=== PATIENT | male | born 1950 | race Caucasian/White ===

== ENCOUNTER 2019-06-02 20:17 | Observation (INO) ==
[2019-06-02] MEDS ORDERED: ASPIRIN PO ONE (20:28)
--- NOTE | 2019-06-02 20:43 | EKG Report ---
Test Performed on : 06/02/2019 8:32:15 PM Test Reason : cp Blood Pressure : / mmHG Vent. Rate : 076 BPM Atrial Rate : 076 BPM P-R Int : 174 ms QRS Dur : 106 ms QT Int : 410 ms P-R-T Axes : 053 033 130 degrees QTc Int : 461 ms Sinus rhythm. with premature atrial complexes. with aberrant conduction. Possible Lateral infarct , age undetermined ST & T wave abnormality, consider inferior ischemia Abnormal ECG When compared with ECG of 23-AUG-2015 04:06, Significant changes have occurred Unconfirmed Result
--- NOTE | 2019-06-02 20:56 | Diag Imaging Result Doc PS360 ---
EXAM: CHEST-2 VIEWS 06/02/2019 HISTORY: cp TECHNIQUE: PA and lateral chest COMMENT: There is ill-defined opacity in the left lower lobe. The alveolar opacity which was present previously on 08/23/2015 and the right lower lobe is no longer present. There is an apparent granuloma present in the right middle lobe. IMPRESSION: Atelectasis versus pneumonia left lower lobe. Electronically signed by Tarun Taylor 06/02/2019 8:54 PM
[2019-06-02] MEDS ORDERED: MORPHINE IV ONE (21:13)
[2019-06-02 21:31] LABS: BASO# 0.02 X1000 (0.0-0.2); BASO% 0.2 % (0.0-0.8); EOS# 0.12 X1000 (0.0-0.7); HEMATOCRIT 32.7 % (42.0-52.0); HEMOGLOBIN 10.6 g/dL (14.0-18.0); IMM GRAN# 0.03 X1000 (0.0-0.04); IMM GRAN% 0.2 % (0.0-0.5); LYMPH# 2.43 X1000 (1.2-3.4); LYMPH% 19.7 % (20.5-51.1); MCH 28.3 PG (27-31); MCHC 32.4 g/dL (33-37); MCV 87.4 FL (81-99); MONO# 0.91 X1000 (0.11-0.59); MONO% 7.4 % (1.7-9.3); MPV 9.9 FL (7.4-10.4); NEUT# 8.85 X1000 (1.4-6.5); NEUT% 71.5 % (42.2-75.2); PLT 349 X1000 (130-400); RBC 3.74 XMIL (4.7-6.1); RDW 14.4 % (11.5-14.5); WBC 12.36 X1000 (4.8-10.8)
[2019-06-02 22:03] LABS: INR 1.18; PROTIME 15.2 Seconds (11.0-16.0)
[2019-06-02 22:04] LABS: PTT 28.4 Seconds (22.3-41.8)
[2019-06-02 22:36] LABS: AGAP 14; ALB/GLOB RATIO 1.1; ALBUMIN 4.3 g/dL (3.5-5.0); ALKALINE PHOSPHATASE 55 U/L (32-122); BUN 37 mg/dL (8-22); CALCIUM 9.5 mg/dL (8.8-10.2); CHLORIDE 94 mmol/L (98-107); CK PROFILE 149 U/L (24-204); COSMO 274; CREATININE 1.2 mg/dL (0.7-1.2); ESTIMATED GFR > 60; GLUCOSE 154 mg/dL (70-104); GOT 20 U/L (10-34); GPT 15 U/L (10-44); POTASSIUM 3.7 mmol/L (3.5-5.1); SODIUM 131 mmol/L (136-145); TCO2 23 mmol/L (25-35); TOTAL BILIRUBIN < 0.15 mg/dL (0.20-1.00); TOTAL PROTEIN 8.1 g/dL (6.3-8.3)
[2019-06-02] MEDS ORDERED: LEVAQUIN 750 MG/D5W 750 MG/150 ML IVPB IV ONE (22:57)
--- NOTE | 2019-06-02 23:02 | PROVIDER DOCUMENTATION ---
This chart was entered by Norma Alfaro Scribe, acting as scribe for Jonathan Lai MD. HPI-Chest Pain - General Chief Complaint: Chest Pain Stated Complaint: CHEST PAIN/SOB/WHEEZING Time Seen by Provider: 06/02/19 21:02 Source: patient Allergies/Adverse Reactions: Patient Allergies Allergy/AdvReac Type Severity Reaction Status Date / Time bacitracin Allergy RASH Verified 06/02/19 21:30 [From Neosporin ([id number])] bacitracin zinc * Allergy RASH Verified 06/02/19 21:30 [From Neosporin ([id number])] clarithromycin [From Biaxin] Allergy RASH Verified 06/02/19 21:30 etodolac [From Lodine] Allergy RASH Verified 06/02/19 21:30 neomycin sulfate * Allergy RASH Verified 06/02/19 21:30 [From Neosporin ([id number])] polymyxin B Allergy RASH Verified 06/02/19 21:30 [From Neosporin ([id number])] Home Medications: Home Medication List Medication Instructions Recorded Confirmed Last Taken Type Carvedilol 25 mg PO BID 04/09/16 06/02/19 04/09/16 History PRAVAstatin [Pravachol] 80 mg PO DAILY 04/09/16 06/02/19 04/09/16 History Aspirin [Adult Low Dose Aspirin EC] 2 tab PO DAILY 06/02/19 06/02/19 Unknown History Nifedipine [Nifedipine ER] 90 mg PO DAILY 06/02/19 06/02/19 Unknown History Telmisartan/Hydrochlorothiazid 1 tab PO DAILY 06/02/19 06/02/19 Unknown History [Telmisartan-Hctz 80-25 mg Tab] - History of Present Illness-CP Nature of Presenting Problem: Pt is a 68 yom who presents to the ED with a CC of chest pain. Pt states the pain began at 8:00pm while at [employer]. Pt reports previous episode a month ago. Pt reports a hx of heart blockages. Pt reports SOB. Pt denies nausea, vomiting, and fever. Pt reports having a stress test a year ago. Pt reports taking 325 mg of aspirin to relieve symptoms. Location: reports: other (left) Chest Pain Radiation: reports: no radiation Quality of Pain: reports: stabbing Severity in ED: mild Onset/Duration: 1 hour ago Timing: still present Context/Activities at Onset: reports: none Modifying Factors: improves with: nothing Associated Symptoms: reports: shortness of breath Nitro Today/Relief: no nitro taken today Aspirin Treatment Today: no aspirin today Prior Chest Pain/Cardiac Workup: reports: echocardiography, stress test Similar Symptoms Previously?: Yes Recently Seen Here or By Another Healthcare Provider: Yes Review of Systems - Adult - REVIEW OF SYSTEMS - ADULT Constitutional: reports: see HPI Eyes: reports: no symptoms reported Ears, Nose, Mouth & Throat: reports: no symptoms reported Cardiovascular: reports: see HPI, chest pain Respiratory: reports: see HPI, shortness of breath Gastrointestinal: reports: no symptoms reported Genitourinary: reports: no symptoms reported Musculoskeletal: reports: no symptoms reported Integumentary: reports: no symptoms reported Neurological: reports: no symptoms reported Psychiatric: reports: no symptoms reported Endocrine: reports: no symptoms reported Hematologic/Lymphatic: reports: no symptoms reported Allergic/Immunologic: reports: no symptoms reported All Other Systems: Reviewed and Negative Past History - Adult - PAST MEDICAL HISTORY-ADULT Review of Records: reports: Old Records Reviewed, Nursing Assessment Review, Medications Reviewed, Social history reviewed & non-contributory. Major Childhood Illnesses: reports: denies history Cardiovascular: reports: HTN, other (stent ) Respiratory: reports: denies history Gastrointestinal: reports: denies history Obstetrical/Gynecological: reports: denies history Genitourinary: reports: denies history Musculoskeletal: reports: denies history Neurological: reports: denies history Endocrine/Immune: reports: denies history Other Conditions: reports: denies history - PRIOR SURGERIES/PROCEDURES Surgical/Procedure History: reports: appendectomy, cholecystectomy - IMMUNIZATION STATUS Childhood Immunizations: See Nurse Assessment Flu Vaccine: See Nurse Assessment - FAMILY HISTORY Family History: reviewed, not pertinent - SOCIAL HISTORY Smoking: quit greater than 1 year Provider spent 3-5 mins advising pt. on dangers of tobacco.: Discussed manners to quit use, and f/u contacts for add'l counseling. Substance Use: denies Living Situation: family Physical Exam-General - PHYSICAL EXAM-ADULT Initial Vital Signs Reviewed: Yes - CONSTITUTIONAL General Appearance: alert, no apparent distress - EYES Eyes: PERRL/EOMI, pink conjunctivae - HEAD, EARS, NOSE, MOUTH & THROAT HENMT: normocephalic/atraumatic, moist mucous membranes - NECK Neck: non-tender, full range of motion, supple, normal inspection - RESPIRATORY Respiratory: chest non-tender, lungs clear, normal breath sounds. negative: crackles, rhonchi - CARDIOVASCULAR Cardiovascular: normal peripheral pulses, regular rate, rhythm. negative: bradycardia, tachycardia - GASTROINTESTINAL (ABDOMEN) Abdominal Exam: normal bowel sounds, non tender, soft. negative: guarding, rebound - MUSCULOSKELETAL Back Exam: normal inspection, no CVA tenderness, no vertebral tenderness Extremity: normal range of motion, non-tender, normal inspection - SKIN Integumentary: normal color, normal turgor, warm/dry. negative: ecchymosis, erythema - NEUROLOGIC Neurologic: grossly normal - PSYCHIATRIC Psych/Mental Status: normal mood/affect, normal thought content, normal thought process, oriented x 3 Progress - PLAN OF CARE/RESULTS Progress/Plan/Lab Results: Vital Signs - 8 hr 06/02/19 20:41 Temperature 98.2 F Pulse Rate 73 Respiratory Rate 18 Blood Pressure 169/65 O2 Sat by Pulse Oximetry 94 L Laboratory Results - last 24 hr 06/02/19 06/02/19 06/02/19 21:19 21:19 21:19 WBC 12.36 H RBC 3.74 L Hgb 10.6 L Hct 32.7 L MCV 87.4 MCH 28.3 MCHC 32.4 L RDW Std Deviation 14.4 Plt Count 349 MPV 9.9 Immature Gran % (Auto) 0.2 Neut % (Auto) 71.5 Lymph % (Auto) 19.7 L Morehouse % (Auto) 7.4 Eos % (Auto) 1.0 Baso % (Auto) 0.2 Immature Gran # (Auto) 0.03 Neut # (Auto) 8.85 H Lymph # (Auto) 2.43 Morehouse # (Auto) 0.91 H Eos # (Auto) 0.12 Baso # (Auto) 0.02 PT INR PTT (Actin FS) Sodium 131 L Potassium 3.7 Chloride 94 L Carbon Dioxide 23 L Anion Gap 14 BUN 37 H Creatinine 1.2 Estimated GFR/1.73 m2 > 60 BUN/Creatinine Ratio 31 Glucose 154 H Calculated Osmolality 274 Calcium 9.5 Total Bilirubin < 0.15 L AST 20 ALT 15 Alkaline Phosphatase 55 Creatine Kinase 149 Troponin T Ado-X-Cjdnnawydti Pept 1061 H Total Protein 8.1 Albumin 4.3 Globulin 3.8 Albumin/Globulin Ratio 1.1 06/02/19 06/02/19 21:19 21:19 WBC RBC Hgb Hct MCV MCH MCHC RDW Std Deviation Plt Count MPV Immature Gran % (Auto) Neut % (Auto) Lymph % (Auto) Morehouse % (Auto) Eos % (Auto) Baso % (Auto) Immature Gran # (Auto) Neut # (Auto) Lymph # (Auto) Morehouse # (Auto) Eos # (Auto) Baso # (Auto) PT 15.2 INR 1.18 PTT (Actin FS) 28.4 Sodium Potassium Chloride Carbon Dioxide Anion Gap BUN Creatinine Estimated GFR/1.73 m2 BUN/Creatinine Ratio Glucose Calculated Osmolality Calcium Total Bilirubin AST ALT Alkaline Phosphatase Creatine Kinase Troponin T 0.011 Jhj-I-Saidejublsg Pept Total Protein Albumin Globulin Albumin/Globulin Ratio Orders Category Date Time Status Cardiac Monitoring DIRECTED Care 06/02/19 20:29 Active Oxygen Therapy- ED Nursing DIRECTED Care 06/02/19 20:29 Active Saline Loc NOW Care 06/02/19 20:29 Active CHEST-2 VIEWS [RAD] Stat Exams 06/02/19 20:29 Completed BLOOD CULTURE [BLDCUL] Stat Lab 06/02/19 22:58 Ordered CBC WITH ELECTRONIC DIFF [HEME] Stat Lab 06/02/19 21:19 Completed CK PROFILE [SP CHEM] Stat Lab 06/02/19 21:19 Completed COMPREHENSIVE METABOLIC PANEL [CHEM] Stat Lab 06/02/19 21:19 Completed PRO B-NATRIURETIC PEPTIDE Stat Lab 06/02/19 21:19 Completed PROTIME WITH INR [COAG] Stat Lab 06/02/19 21:19 Completed PTT [COAG] Stat Lab 06/02/19 21:19 Completed TROPONIN T Stat Lab 06/02/19 21:19 Completed Aspirin Med 06/02/19 20:28 Discontinued 325 mg PO NOW ONE Levaquin 750 mg/D5w IV Now Med 06/02/19 22:57 Ordered Levofloxacin 750 mg/D5w [Levaquin 750 mg/D5w] 750 mg in 150 ml IV NOW Morphine Med 06/02/19 21:13 Discontinued 4 mg IV NOW ONE CP/SOB/Palp >45 yrs of Age Stat Oth 06/02/19 20:28 Ordered EKG [EKG] Stat Ther 06/02/19 20:29 Draft ACS vs PNA, will cover with abx, will admit for ACS workup, spoke with Dr. Dietz and he will admit the patient Result Diagrams: 06/02/19 21:19 06/02/19 21:19 - EKG 1 Time of EKG reading by physician:: 20:35 EKG Read and Signed by:: Jonathan Lai EKG Interpretation (*Must complete 3 of following elements*): Abnormal (rate 76 Sinus rhythm with premature atrial complexes with aberrant conduction Possible Lateral infarct, age undetermined ST & T wave abnormality, consider inferior isechmia) - XRAY 1 XRAY: Bilateral XRAY Study: Chest Impression: Abnormal (EXAM: CHEST-2 VIEWS 06/02/2019 HISTORY: cp TECHNIQUE: PA and lateral chest COMMENT: There is ill-defined opacity in the left lower lobe. The alveolar opacity which was present previously on 08/23/2015 and the right lower lobe is no longer present. There is an apparent granuloma present in the right middle lobe. IMPRESSION: Atelectasis versus pneumonia left lower lobe. Electronically signed by Tarun Taylor 06/02/2019 8:54 PM 06/02/192053 Interpreting Physician: Tarun Taylor MD Dictated Date/Time: 06/02/192052 cc: Jonathan Lai MD; Lexa Chin MD) Departure - Departure Date of Disposition Decision: 06/02/19 Time of Disposition Decision: 23:00 DIAGNOSIS: Pneumonia Qualifiers: Pneumonia type: due to unspecified organism Laterality: left Lung location: lower lobe of lung Qualified Code(s): J18.1 - Lobar pneumonia, unspecified organism Chest pain Qualifiers: Chest pain type: other chest pain Qualified Code(s): R07.89 - Other chest pain; R07.8 - Other chest pain Disposition: ADMITTED INPATIENT 09 Certified Medical Emergency: Emergent Condition: Stable Referrals and Follow-Ups: Lexa Chin MD [Primary Care Provider] - - Critical Care Note This patient required my direct & personal management of CC.: No Attestation - Physician/ FRANSISCO Attestation Patient care was provided by Advanced Practice Provider:: No The physician spent face to face time with patient:: Yes Advanced Practice Provider documentation review:: Supervising physician onsite and consulted in the evaluation and care of this patient. The physician did have a face to face encounter with the patient. This chart was documented by the indicated scribe, (Norma Alfaro Scribe) and accurately reflects the services I performed and decisions made by me, Jonathan Lai MD, as attested by the provider's signature.
[2019-06-02] MEDS ORDERED: NS 1,000 ML IV ONE (23:03)
[2019-06-03] MEDS ORDERED: TYLENOL PO PRN (02:22)
[2019-06-03] MEDS: LOVENOX SUBQ SCH (02:38)
[2019-06-03] MEDS: DUONEB (A & A) INH SCH ×4 (03:51→23:16)
[2019-06-03 07:25] LABS: BASO# 0.04 X1000 (0.0-0.2); BASO% 0.4 % (0.0-0.8); EOS# 0.19 X1000 (0.0-0.7); EOS% 1.7 % (0.0-10.0); HEMATOCRIT 34.5 % (42.0-52.0); IMM GRAN# 0.03 X1000 (0.0-0.04); IMM GRAN% 0.3 % (0.0-0.5); LYMPH% 21.9 % (20.5-51.1); MCH 28.1 PG (27-31); MCHC 31.9 g/dL (33-37); MCV 88.2 FL (81-99); MONO# 0.68 X1000 (0.11-0.59); MPV 9.8 FL (7.4-10.4); NEUT# 7.95 X1000 (1.4-6.5); NEUT% 69.7 % (42.2-75.2); PLT 324 X1000 (130-400); RBC 3.91 XMIL (4.7-6.1); RDW 14.3 % (11.5-14.5); WBC 11.39 X1000 (4.8-10.8)
[2019-06-03 07:53] LABS: AGAP 13; BUN 29 mg/dL (8-22); CALCIUM 9.3 mg/dL (8.8-10.2); CHLORIDE 100 mmol/L (98-107); COSMO 280; ESTIMATED GFR > 60; GLUCOSE 96 mg/dL (70-104); POTASSIUM 4.3 mmol/L (3.5-5.1); SODIUM 137 mmol/L (136-145); TCO2 24 mmol/L (25-35)
[2019-06-03] MEDS: COREG PO SCH ×2 (10:36→20:58)
[2019-06-03] MEDS: PRAVACHOL PO SCH (10:36)
[2019-06-03] MEDS: ASPIRIN EC PO SCH (10:37)
[2019-06-03] MEDS: ADALAT CC PO SCH (10:37)
[2019-06-03] MEDS: HYDROCHLOROTHIAZIDE PO SCH (10:37)
--- NOTE | 2019-06-03 10:37 | HISTORY AND PHYSICAL ---
CHIEF COMPLAINT: Chest pain, shortness of breath and wheezing. HISTORY OF PRESENT ILLNESS: Mr. Quinn is a 68-year-old male who presented to the emergency room with complaints of chest pain, shortness of breath and wheezing he stated started around 8 p.m. while he was at [employer]. Had a previous episode around a month ago. He denied any nausea, vomiting or fever. States that he had a stress test around a year ago. Does have a history of hypertension, hyperlipidemia, coronary artery disease status post stenting and a history of skin cancer. He reported that is was left-sided chest pain with no radiation. He felt that it was a stabbing pain. Chest x-ray was obtained in the emergency room which showed a left lower lobe pneumonia. His cardiac enzymes were negative. He will be admitted to the medical floor for treatment of pneumonia and trending cardiac enzymes. PAST MEDICAL HISTORY: See HPI. PAST SURGICAL HISTORY: 1. Appendectomy. 2. Cholecystectomy. 3. Cardiac stenting. SOCIAL HISTORY: No alcohol, tobacco or illicit drugs. He quit smoking in 1985. FAMILY HISTORY: Positive for coronary artery disease. ALLERGIES: Biaxin, Neosporin, Lodine, bacitracin, etodolac, all causing a rash. HOME MEDICATIONS: 1. Aspirin 81 mg two p.o. daily. 2. Carvedilol 25 mg p.o. b.i.d. 3. Nifedipine 90 mg p.o. daily. 4. Pravastatin 80 mg p.o. daily. 5. Telmisartan/hydrochlorothiazide 80/25 one p.o. daily. REVIEW OF SYSTEMS: Fourteen point review of systems conducted with the patient and pertinent positives listed above in the HPI. All other systems reviewed and found to be negative. PHYSICAL EXAMINATION: VITAL SIGNS: Temperature 97.7 degrees, pulse 74, respirations 18, blood pressure 175/67, oxygen saturation 95% on room air. GENERAL: 68-year-old male lying in the ER stretcher in no acute distress. He is alert and oriented x3. HEENT: Head is atraumatic, normocephalic. Pupils equal, round and reactive to light. Extraocular eye movements intact. Sclerae anicteric. Conjunctivae mildly pale. Oral mucosa is mildly dry. NECK: Supple. No JVD. No thyromegaly. Trachea is midline. No cervical lymphadenopathy. CARDIAC: S1, S2 appreciated. No murmurs, gallops, rubs. LUNGS: Decreased. Crepitations noted throughout bilateral lung bases. No wheezing. No rhonchi. Symmetric rise and fall of respirations. ABDOMEN: Soft, nondistended, nontender. Bowel sounds present in all 4 quadrants. Normoactive. No pulsatile mass. No organomegaly. EXTREMITIES: No cyanosis, clubbing or edema. 2+ pedal pulses. NEUROLOGICAL: Alert and oriented x3. No focal motor deficits. Otherwise nonfocal examination. DIAGNOSTIC DATA: Chest x-ray shows left lower lobe pneumonia. LABORATORY DATA: WBC 12.36, hemoglobin 10.6, hematocrit 32.7, platelet count 349,000. Coags within normal limits. Sodium 131, potassium 3.7, chloride 94, carbon dioxide 23, BUN 37, creatinine 1.2, glucose 154. CK and troponin are within normal limits. ASSESSMENT AND PLAN: 1. Community-acquired pneumonia. 2. Leukocytosis secondary to #1. 3. Anemia of chronic disease. 4. Hypertension. 5. Coronary artery disease. 6. Hyperlipidemia. PLAN: Admit patient to the medical floor. We will treat with Levaquin, trend cardiac enzymes, continue home antihypertensives. Gentle fluid hydration. Continue patient's pravastatin. Blood cultures are pending. We will order a sputum culture. Further recommendations per patient's clinical course. Dictated by BRONSON Grey for Jeferson Patrick MD cc: BRONSON Grey MD Patient presenting with chest pain, shortness of breath, wheezing. CXR positive for left lower lobe infiltrate. I agree with the assessment and plan of the BRONSON. Dr. Patrick. [facility]
[2019-06-03] MEDS: MICARDIS PO SCH (10:38)
--- NOTE | 2019-06-03 10:59 | PROGRESS NOTE ---
DATE: 06/03/2019 SUBJECTIVE: Mr. Quinn is breathing comfortably. He feels a little better. He reported that he just felt bad. He did not know he had pneumonia. OBJECTIVE: Vital Signs: He remains afebrile, temperature 97.9 degrees, pulse 73, respirations 18, blood pressure 156/55. HEENT: His pupils are equal. CVP less than 6 cm from right atrium. Lungs: Clear anterior and posterior. Cardiovascular: Regular rhythm and rate without murmur or S3. Abdomen: Soft. Skin: Warm and dry. Extremities: No pedal edema. IMAGING AND LABORATORY DATA: White count 11,390, hematocrit is 34, platelet count 324,000. Sodium 137, potassium 4.3, chloride 100, BUN 29, creatinine 1.0. ProBNP was 1000. Troponin was less than 0.01. His chest x-ray showed atelectasis versus pneumonia, left lower lobe. ASSESSMENT AND PLAN: Treat him for pneumonia. He has general malaise and feeling bad. He is getting Levaquin 750 mg intravenously daily and getting some albuterol, DuoNebs. He reports that he feels better. Will repeat another chest x-ray in the morning. His lab is unremarkable. Possible elevation of his white blood cell count. Electrolytes this morning show sodium 137, potassium 4.3, chloride 100, BUN 29, creatinine 1.2. His troponin has been less than 0.01. cc: Sid Piña MD
[2019-06-04] MEDS: DUONEB (A & A) INH SCH ×4 (05:17→22:50)
[2019-06-04] MEDS: LOVENOX SUBQ SCH (05:23)
--- NOTE | 2019-06-04 08:19 | Diag Imaging Result Doc PS360 ---
EXAM: CHEST-2 VIEWS HISTORY: 0600 TECHNIQUE: Two views COMPARISON: 06/02/2019 FINDINGS: I am unsure what the history means. The lungs are well expanded. The heart is not enlarged. The vessels are not distended. There are no infiltrates. No pleural effusions. Right granuloma. IMPRESSION: No acute abnormality. Electronically signed by Dallas Edward 06/04/2019 8:17 AM
[2019-06-04] MEDS: COREG PO SCH ×2 (09:18→21:48)
[2019-06-04] MEDS: HYDROCHLOROTHIAZIDE PO SCH (09:18)
[2019-06-04] MEDS: PRAVACHOL PO SCH (09:18)
[2019-06-04] MEDS: ADALAT CC PO SCH (09:19)
[2019-06-04] MEDS: ASPIRIN EC PO SCH (09:19)
[2019-06-04] MEDS: MICARDIS PO SCH (09:19)
--- NOTE | 2019-06-04 15:19 | PROGRESS NOTE ---
DATE: 06/04/2019 SUBJECTIVE: Today Mr. Quinn refers to be doing a little better. He did not have any more chest pain. He just had a lot of concerns about his care. He believes that he probably did not get a Levaquin dose that he was due last night. 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 OBJECTIVE: Current vitals: Blood pressure is 187/73, pulse of 70, respiration is 20, temperature is 98.3 degrees. General exam: Mr. Quinn is a 68-year-old gentleman. He is in bed in no distress. HEENT: Mucosa is pink and moist. Anicteric. Acyanotic. Neck: Supple. Chest: Clear to auscultation. No crepitations. Cardiovascular: Regular rate and rhythm. Abdomen: Soft. Extremities: No pedal edema. MEDIA AID: Patient was awake, alert and oriented. There was no focal neurological deficit. LABORATORY DATA: Has been reviewed from yesterday; there was none for today. Patient's troponins have also been trended 4 times, and they have all been negative. X-RAY DATA: A chest x-ray which was done on admission did show an infiltrate in the left lower lobe. ASSESSMENT: 1. Left lower pleuritic chest pain, presumably from atelectasis versus pneumonia. A follow-up chest x-ray shows some improvement; however, the patient continues to be symptomatic. We are going to get a CAT scan of the lungs for better visualization of the lung anatomy. The patient continues to be on Levaquin. 2. History of coronary artery disease. So far, troponins have been trended 4 times, unremarkable, and electrocardiograms have also been unremarkable. 3. Uncontrolled hypertension. Patient had been started back on his home medications. 4. Dyslipidemia. Will continue with pravastatin. cc: Isaiah Carrasquillo MD
--- NOTE | 2019-06-04 16:12 | Diag Imaging Result Doc PS360 ---
EXAM: CT THORAX W/CONTRAST HISTORY: pneumonia TECHNIQUE: CT chest with intravenous contrast COMPARISON: 08/21/2015 FINDINGS: No pleural effusions. Prominent atherosclerosis. Mildly prominent heart. No aortic aneurysm or dissection. There calcified mediastinal and right hilar nodes with scattered granuloma. Scarring in the right base. No infiltrates. IMPRESSION: No pneumonia This exam was performed using automated exposure control, adjustment of mA or kV according to patient size, and/or use of iterative reconstruction technique. Electronically signed by Dallas Edward 06/04/2019 4:10 PM
[2019-06-04] MEDS: LEVAQUIN 750 MG/D5W 750 MG/150 ML IVPB IV SCH ×2 (21:48→22:11)
[2019-06-05] MEDS: DUONEB (A & A) INH SCH ×2 (05:27→10:31)
[2019-06-05] MEDS: LOVENOX SUBQ SCH (06:46)
[2019-06-05 08:30] VITALS: BP 133/54
[2019-06-05] MEDS: PRAVACHOL PO SCH (10:19)
[2019-06-05] MEDS: ASPIRIN EC PO SCH (10:19)
[2019-06-05] MEDS: ADALAT CC PO SCH (10:19)
[2019-06-05] MEDS: MICARDIS PO SCH (10:20)
[2019-06-05] MEDS: HYDROCHLOROTHIAZIDE PO SCH (10:20)
[2019-06-05] MEDS: COREG PO SCH (10:20)
--- NOTE | 2019-06-05 15:02 | DISCHARGE SUMMARY ---
ADMISSION DATE: 06/03/2019 DISCHARGE DATE: 06/05/2019 DISPOSITION: Home. FOLLOWUP: Dr. Lexa Chin. CONSULTATIONS DURING THIS ADMISSION: None. IMAGING STUDIES OF SIGNIFICANCE: 1. Chest x-ray did show atelectasis versus pneumonia in the left lower lobe. 2. A repeat chest x-ray showed no acute pathology. 3. A CTA of the lungs showed no pneumonia. ADMISSION DIAGNOSES: 1. Community-acquired pneumonia. 2. Leukocytosis. 3. Anemia of chronic disease. 4. Hypertension. 5. Coronary artery disease. DIAGNOSES AT THE TIME OF DISCHARGE: 1. Left lower pleuritic chest pain, presumably from atelectasis. 2. Bronchitis. 3. History of coronary artery disease, currently asymptomatic. The patient's troponin trended 4 times negative. EKGs showed no ST or T-wave abnormality. 4. Uncontrolled hypertension, improved during the hospital course. Patient has been started back on his medications. 5. Dyslipidemia, stable. DISCHARGE MEDICATIONS: Pravastatin 80 mg p.o. daily. Carvedilol 25 mg b.i.d. Aspirin 81 mg daily. Nifedipine 90 mg p.o. daily. Telmisartan with hydrochlorothiazide. Levaquin 500 p.o. daily. Tylenol 650 p.o. every 6 hours. PRESENTING COMPLAINT: Chest pain and shortness of breath. HISTORY OF PRESENTING COMPLAINT: Mr. Quinn is a 68-year-old gentleman who came to the emergency department because of chest discomfort, mostly to the left side. Imaging studies initially did show a left lower lobe pneumonia versus atelectasis. According to Mr. Quinn he did have some chills and fevers at home. He was admitted for suspected left lower lobe pneumonia. HOSPITAL COURSE: Mr. Quinn was admitted to the medical floor, pain was managed and he was started on broad-spectrum IV antibiotics. A repeat chest x-ray was unremarkable Mr. Quinn was concerned about his environmental exposures and the possibility of him developing a lung cancer. I did tell him that his probability is less, not withstanding he requested a CT scan of the chest which was done. It definitely came back negative and there were no masses nor even pneumonia. I think Mr. Quinn did have some bronchitis associated with left lower lobe atelectasis causing his pleuritic chest pain. During the hospital course, the pain completely resolved. His cough and sputum production also completely resolved. No more wheezing. His current vitals blood pressure is 133/54, pulse of 83, respirations 16, temperature 98.2 degrees. Mr. Quinn is tolerating his current oral regimen and is asymptomatic. He feels well. His feels he is back to his baseline. We think he is stable enough to be discharged. All the discharge instructions discussed with him and he voiced understanding. Time spent for discharge is 35 minutes. cc: MD Lexa Lorenzana MD MTDD
== END 2019-06-05 10:43 | disposition home or self-care (01) ==
LOC: ED 20:17 → INTOOBSV 06-03 01:02 → SUATTDRO 06-03 01:02 → 3N 06-03 01:02
PROVIDERS: ATTEND Internal Medicine

== ENCOUNTER 2019-06-26 16:57 | Inpatient (IN) ==
[2019-06-26] MEDS ORDERED: ZOFRAN IV ONE (17:20)
[2019-06-26] MEDS ORDERED: NS 1,000 ML IV ONE ×2 (17:20→19:27)
[2019-06-26] MEDS ORDERED: IMODIUM PO ONE (17:20)
--- NOTE | 2019-06-26 17:25 | PROVIDER DOCUMENTATION ---
HPI-General Adult - General Chief Complaint: Flu Symptoms Stated Complaint: FLU Time Seen by Provider: 06/26/19 17:11 Source: patient, family Allergies/Adverse Reactions: Patient Allergies Allergy/AdvReac Type Severity Reaction Status Date / Time bacitracin Allergy RASH Verified 06/26/19 17:17 [From Neosporin ([id number])] bacitracin zinc * Allergy RASH Verified 06/26/19 17:17 [From Neosporin ([id number])] clarithromycin [From Biaxin] Allergy RASH Verified 06/26/19 17:17 etodolac [From Lodine] Allergy RASH Verified 06/26/19 17:17 neomycin sulfate * Allergy RASH Verified 06/26/19 17:17 [From Neosporin ([id number])] polymyxin B Allergy RASH Verified 06/26/19 17:17 [From Neosporin ([id number])] Latex, Natural Rubber AdvReac RASH Verified 06/26/19 17:18 Home Medications: Home Medication List Medication Instructions Recorded Confirmed Last Taken Type Carvedilol 25 mg PO BID 04/09/16 06/26/19 06/26/19 History PRAVAstatin [Pravachol] 80 mg PO QHS 04/09/16 06/26/19 1 Day Ago History ~06/25/19 Aspirin [Adult Low Dose Aspirin EC] 2 tab PO DAILY 06/02/19 06/26/19 06/26/19 History Nifedipine [Nifedipine ER] 90 mg PO DAILY 06/02/19 06/26/19 06/26/19 History Telmisartan/Hydrochlorothiazid 1 tab PO DAILY 06/02/19 06/26/19 06/26/19 History [Telmisartan-Hctz 80-25 mg Tab] Acetaminophen [Tylenol] 650 mg PO Q4H PRN PRN #30 tab 06/05/19 06/26/19 06/26/19 Rx Codeine Phosphate/Guaifenesin 5 ml PO Q4H PRN 06/26/19 06/26/19 06/26/19 History [Virtussin AC Liquid] Nitroglycerin [Nitrostat] 0.4 mg SUBLINGUAL PRN PRN 06/26/19 06/26/19 3 Days Ago History ~06/23/19 - History of Present Illness -Gen Adult Nature of Presenting Problems: Patient is here in the ED with his with c/o lethargy, N/V/D of 4 days duration and decreased oral intake. He was treated for pneumonia around and also recently completed tamiflu for influenza A prior to onset of sxs. Admits to cough , occasional running nose with no other sxs Location of Pain/Injury: reports: none Pain Radiation: reports: no radiation Quality of Pain: reports: none Onset/Duration: reports: 4 days ago (see history) Timing: reports: still present Context/Activities at Onset: reports: none Modifying Factors: improves with: nothing Associated Symptoms: reports: denies symptoms Similar Symptoms Previously?: No Recently seen or treated by another doctor?: No Review of Systems - Adult - REVIEW OF SYSTEMS - ADULT Constitutional: reports: fever, fatique Eyes: reports: no symptoms reported Ears, Nose, Mouth & Throat: reports: no symptoms reported Cardiovascular: reports: no symptoms reported Respiratory: reports: see HPI Gastrointestinal: reports: see HPI Genitourinary: reports: no symptoms reported Musculoskeletal: reports: no symptoms reported Integumentary: reports: no symptoms reported Neurological: reports: no symptoms reported Psychiatric: reports: no symptoms reported Endocrine: reports: no symptoms reported Hematologic/Lymphatic: reports: no symptoms reported Allergic/Immunologic: reports: no symptoms reported Past History - Adult - PAST MEDICAL HISTORY-ADULT Review of Records: reports: Nursing Assessment Review, Medications Reviewed, Social history reviewed & non-contributory. Major Childhood Illnesses: reports: denies history Cardiovascular: reports: HTN, other (stent ) Respiratory: reports: denies history Gastrointestinal: reports: denies history Obstetrical/Gynecological: reports: denies history Genitourinary: reports: denies history Musculoskeletal: reports: denies history Neurological: reports: denies history Endocrine/Immune: reports: denies history Other Conditions: reports: denies history - PRIOR SURGERIES/PROCEDURES Surgical/Procedure History: reports: appendectomy, cholecystectomy - IMMUNIZATION STATUS Childhood Immunizations: See Nurse Assessment Flu Vaccine: See Nurse Assessment - FAMILY HISTORY Family History: reviewed, not pertinent - SOCIAL HISTORY Smoking: denies Substance Use: none/never Alcohol Use Frequency: never Living Situation: family Physical Exam-General - PHYSICAL EXAM-ADULT Initial Vital Signs Reviewed: Yes - CONSTITUTIONAL General Appearance: lethargic - EYES Eyes: PERRL/EOMI - HEAD, EARS, NOSE, MOUTH & THROAT HENMT: normocephalic/atraumatic - NECK Neck: non-tender, full range of motion, supple - RESPIRATORY Respiratory: chest non-tender, normal breath sounds, no pleuratic chest pain, no respiratory distress, no accessory muscle use - CARDIOVASCULAR Cardiovascular: regular rate, rhythm, JVD - GASTROINTESTINAL (ABDOMEN) Abdominal Exam: non tender, soft - MUSCULOSKELETAL Back Exam: normal inspection, no CVA tenderness Extremity: non-tender, no pedal edema - SKIN Integumentary: normal color - NEUROLOGIC Neurologic: care specialist II-XII nml as tested - PSYCHIATRIC Psych/Mental Status: oriented x 3 Progress - PLAN OF CARE/RESULTS Progress/Plan/Lab Results: Vital Signs - 8 hr 06/26/19 17:01 Temperature 97.8 F Pulse Rate 83 Respiratory Rate 20 Blood Pressure 99/47 O2 Sat by Pulse Oximetry 94 L Orders Category Date Time Status Cardiac Monitoring DIRECTED Care 06/26/19 17:18 Active IV Insertion ORDERED Care 06/26/19 17:18 Active Notify MD of + Sepsis Screen NOW Care 06/26/19 17:18 Active Notify Physician As Ordered Care 06/26/19 17:18 Active CHEST-1 VIEW [RAD] Stat Exams 06/26/19 17:18 Ordered BLOOD CULTURE [BLDCUL] Stat Lab 06/26/19 17:20 Ordered CBC WITH DIFF [HEME] Stat Lab 06/26/19 17:20 Ordered CK PROFILE [SP CHEM] Stat Lab 06/26/19 17:20 Ordered COMPREHENSIVE METABOLIC PANEL [CHEM] Stat Lab 06/26/19 17:20 Ordered INFLUENZA SCREEN A/B Stat Lab 06/26/19 17:22 Uncollected LACTATE, PLASMA [CHEM] Lab 06/26/19 17:30 Uncollected LACTATE, PLASMA [CHEM] Lab 06/26/19 20:30 Uncollected LACTATE, PLASMA [CHEM] Lab 06/26/19 23:30 Uncollected MAGNESIUM [CHEM] Stat Lab 06/26/19 17:20 Ordered PROTIME WITH INR [COAG] Stat Lab 06/26/19 17:20 Ordered PTT [COAG] Stat Lab 06/26/19 17:20 Ordered TROPONIN T Stat Lab 06/26/19 17:20 Ordered URINALYSIS W/POSS RFLX CULT [URINALYSIS] Stat Lab 06/26/19 17:20 Ordered 0.9% Sodium Chloride Inj [Ns] 1,000 ml Med 06/26/19 17:20 Active IV 999 mls/hr Loperamide [Imodium] Med 06/26/19 17:20 Discontinued 4 mg PO NOW ONE Ondansetron [Zofran] Med 06/26/19 17:20 Discontinued 8 mg IV NOW ONE Oxygen Device Stat Oth 06/26/19 17:18 Active Result Diagrams: 06/26/19 17:20 06/26/19 17:20 - REASSESSMENT Reassessment #1 Time Reassessed: 18:55 Status: improving (improved after IVF, now more allert. Discussed labs and positive xray result with him. He is okay with admission) - XRAY 1 XRAY Study: Chest ( EXAM: CHEST-1 VIEW HISTORY: RO PNEUMONIA TECHNIQUE: Single view COMPARISON: 06/04/2019 FINDINGS: The lungs are well expanded. The heart is mildly prominent. The vessels are not distended. There are left lower lobe infiltrates. No effusion identified. Right-sided granuloma IMPRESSION: Left lower lobe pneumonia Electronically signed by Dallas Edward 06/26/2019 5:34 PM) - CONSULTS/PCP/HOSPITALIST Notification #1 *Consult/PCP/Hospitalist*: Dr Leon Time Discussed: 17:20 Consult Disposition: Admit (accepts admission) Departure - Departure Date of Disposition Decision: 06/26/19 Time of Disposition Decision: 19:22 DIAGNOSIS: Influenza A Pneumonia Qualifiers: Pneumonia type: due to unspecified organism Laterality: left Lung location: lower lobe of lung Qualified Code(s): J18.1 - Lobar pneumonia, unspecified organism Nausea & vomiting Qualifiers: Vomiting type: unspecified Vomiting Intractability: non-intractable Qualified Code(s): R11.2 - Nausea with vomiting, unspecified Diarrhea Qualifiers: Diarrhea type: unspecified type Qualified Code(s): R19.7 - Diarrhea, unspecified Disposition: ADMITTED INPATIENT 09 Certified Medical Emergency: Emergent Condition: Fair Referrals and Follow-Ups: Lexa Chin MD [Primary Care Provider] - - Critical Care Note This patient required my direct & personal management of CC.: No Attestation - Physician/ FRANSISCO Attestation Patient care was provided by Advanced Practice Provider:: No The physician spent face to face time with patient:: Yes Advanced Practice Provider documentation review:: Supervising physician onsite and consulted in the evaluation and care of this patient. The physician did have a face to face encounter with the patient.
--- NOTE | 2019-06-26 17:37 | Diag Imaging Result Doc PS360 ---
EXAM: CHEST-1 VIEW HISTORY: RO PNEUMONIA TECHNIQUE: Single view COMPARISON: 06/04/2019 FINDINGS: The lungs are well expanded. The heart is mildly prominent. The vessels are not distended. There are left lower lobe infiltrates. No effusion identified. Right-sided granuloma IMPRESSION: Left lower lobe pneumonia Electronically signed by Dallas Edward 06/26/2019 5:34 PM
[2019-06-26 17:45] LABS: BASO# 0.01 X1000 (0.0-0.2); BASO% 0.1 % (0.0-0.8); EOS# 0.02 X1000 (0.0-0.7); EOS% 0.1 % (0.0-10.0); HEMATOCRIT 34.3 % (42.0-52.0); HEMOGLOBIN 11.2 g/dL (14.0-18.0); IMM GRAN# 0.29 X1000 (0.0-0.04); LYMPH# 1.16 X1000 (1.2-3.4); MCH 27.8 PG (27-31); MCHC 32.7 g/dL (33-37); MCV 85.1 FL (81-99); MONO# 0.24 X1000 (0.11-0.59); MONO% 1.6 % (1.7-9.3); MPV 9.9 FL (7.4-10.4); NEUT# 12.85 X1000 (1.4-6.5); NEUT% 88.2 % (42.2-75.2); PLT 233 X1000 (130-400); RBC 4.03 XMIL (4.7-6.1); RDW 14.3 % (11.5-14.5); WBC 14.57 X1000 (4.8-10.8)
[2019-06-26 17:48] LABS: INR 1.59; PROTIME 19.2 Seconds (11.0-16.0)
[2019-06-26 17:49] LABS: PTT 40.8 Seconds (22.3-41.8)
[2019-06-26] MEDS ORDERED: OFIRMEV 1000 MG/ISOTONIC SOLN 1,000 MG/100 ML BOTTLE IV ONE (17:59)
[2019-06-26 18:13] LABS: ALB/GLOB RATIO 0.9; ALBUMIN 3.7 g/dL (3.5-5.0); CALCIUM 9.2 mg/dL (8.8-10.2); CREATININE 2.1 mg/dL (0.7-1.2); MAGNESIUM 1.8 mg/dL (1.5-2.7); POTASSIUM 3.8 mmol/L (3.5-5.1); TOTAL BILIRUBIN 0.49 mg/dL (0.20-1.00); TOTAL PROTEIN 7.6 g/dL (6.3-8.3)
[2019-06-26] MEDS ORDERED: ROCEPHIN 1 GM in NS 50 ML IV ONE (19:26)
[2019-06-26] MEDS ORDERED: MORPHINE IV ONE (20:08)
[2019-06-26 22:43] LABS: URINE SOURCE CLEAN CATCH
[2019-06-26 22:55] LABS: BILIRUBIN URINE NEGATIVE (NEGATIVE); BLOOD URINE NEGATIVE (NEGATIVE); COLOR YELLOW; GLUCOSE URINE NEGATIVE (NEGATIVE); KETONE URINE TRACE mg/dL (NEGATIVE); LEUKOCYTES URINE NEGATIVE (NEGATIVE); NITRITE URINE NEGATIVE (NEGATIVE); PH URINE 5.5; PROTEIN URINE 100 mg/dL (NEGATIVE); SP GRAVITY URINE 1.027; TURBIDITY URINE HAZY (CLEAR); UROBILINOGEN URINE NORMAL (NORMAL)
[2019-06-26 22:57] LABS: UR EPITHELIAL CELLS <10 /HPF (<10); URINE BACTERIA NEGATIVE /HPF; URINE RBC <10 /HPF (<10)
[2019-06-26] MEDS: NS 1,000 ML IV SCH (23:33)
[2019-06-26] MEDS: ZOSYN 3.375 GM in NS 50 ML IV SCH (23:34)
[2019-06-26] MEDS: ZOFRAN IV PRN (23:37)
[2019-06-26] MEDS: TAMIFLU PO SCH (23:37)
[2019-06-26] MEDS: NORCO-5 PO PRN (23:37)
--- NOTE | 2019-06-27 02:02 | HISTORY AND PHYSICAL ---
PRIMARY CARE PHYSICIAN: Dr. Chin. CHIEF COMPLAINT: Cough, fever, shortness of breath, not feeling well for several days. HISTORY OF PRESENTING ILLNESS: A 69-year-old male with a history of hypertension, hyperlipidemia, who had presented to the emergency department with several days history of not feeling well. He states he was having fever, cough. He was recently diagnosed with influenza and just started on treatment with Tamiflu. The patient was evaluated the emergency department. He had imaging done which did show pneumonia and due to these presenting symptoms it was thought that he would need admission for further management. At the time of my examination, patient denied any headache, chest pain, hemoptysis, melena, or weight changes, but complained of low-grade temperature, not feeling well and coughing. PAST MEDICAL HISTORY: Includes hypertension, hyperlipidemia. PAST SURGICAL HISTORY: Appendectomy, cholecystectomy, left carotid stent. ALLERGIES: Biaxin, Neosporin, iodine, bacitracin, etodolac. CURRENT MEDICATIONS: Include acetaminophen 650 mg p.o. q.4 hours, aspirin 81 mg p.o. daily, carvedilol 25 mg p.o. b.i.d., nifedipine 90 mg p.o. daily, pravastatin 80 mg p.o. at bedtime, telmisartan HCT 80/25 one p.o. daily. SOCIAL HISTORY: He is a former smoker. No history of alcohol or illicit drug use. FAMILY HISTORY: Positive for coronary artery disease in father. REVIEW OF SYSTEMS: Fourteen point review of system as listed in HPI. Other systems negative. PHYSICAL EXAMINATION: GENERAL: Cooperative, friendly male. He is resting more comfortably now. VITAL SIGNS: Temperature 98.8 degrees, pulse 84, respirations 26, blood pressure 116/55. HEENT: Atraumatic, normocephalic. Extraocular movements intact. PERRLA. NECK: No masses. CHEST: Rhonchi. CARDIOVASCULAR: Regular rate and rhythm. ABDOMEN: Soft, positive bowel sounds. EXTREMITIES: No edema. NEUROLOGIC: He is awake, alert, oriented x3. GENITOURINARY: No bladder distention. SKIN: Warm. LABORATORIES AND STUDIES: WBCs 14.57, hemoglobin 11.2, hematocrit 34.3, platelets 233,000. Sodium 129, potassium 3.8, chloride 91, CO2 is 20, BUN is 37, creatinine is 2.1, glucose is 142. Plasma lactate is 3.3. Chest x-ray shows left lower lobe pneumonia. ASSESSMENT: A 68-year-old male with a history of hypertension, hyperlipidemia, who had presented to the emergency department with several days history of worsening cough, low-grade temperature and not feeling well. He was recently diagnosed with influenza A and he was evaluated in the emergency department. He was found to have pneumonia on imaging and subsequently he will require admission for further management. 1. Pneumonia. 2. Influenza A. 3. Hypertension. 4. Acute renal failure. PLAN: 1. We will admit patient to medical floor with telemetry. 2. We will keep patient on isolation. 3. We will check blood cultures and start patient on IV antibiotics. 4. We will continue patient on Tamiflu. 5. We will monitor blood pressure. Resume antihypertensive agent. 6. Continue with IV fluids and monitor renal function. 7. Put patient on DVT prophylaxis with SCDs. 8. We will continue to follow, reassess and make further recommendation based on patient's clinical course. cc: Ajay Leon MD
[2019-06-27] MEDS: ZOSYN 3.375 GM in NS 50 ML IV SCH ×4 (03:35→22:57)
[2019-06-27] MEDS: NORCO-5 PO PRN ×3 (07:49→20:25)
[2019-06-27 07:51] LABS: CALCIUM 8.8 mg/dL (8.8-10.2); CREATININE 1.8 mg/dL (0.7-1.2); POTASSIUM 4.4 mmol/L (3.5-5.1)
[2019-06-27 08:08] LABS: BASO# 0.01 X1000 (0.0-0.2); BASO% 0.1 % (0.0-0.8); HEMATOCRIT 31.5 % (42.0-52.0); HEMOGLOBIN 10.4 g/dL (14.0-18.0); IMM GRAN# 0.03 X1000 (0.0-0.04); IMM GRAN% 0.3 % (0.0-0.5); LYMPH# 0.87 X1000 (1.2-3.4); LYMPH% 8.1 % (20.5-51.1); MCH 28.8 PG (27-31); MCV 87.3 FL (81-99); MONO# 0.17 X1000 (0.11-0.59); MONO% 1.6 % (1.7-9.3); MPV 9.7 FL (7.4-10.4); NEUT# 9.67 X1000 (1.4-6.5); NEUT% 89.9 % (42.2-75.2); PLT 179 X1000 (130-400); RBC 3.61 XMIL (4.7-6.1); RDW 14.8 % (11.5-14.5); WBC 10.75 X1000 (4.8-10.8)
[2019-06-27] MEDS ORDERED: ADALAT CC PO SCH (09:00)
[2019-06-27] MEDS: ASPIRIN EC PO SCH (09:41)
[2019-06-27] MEDS: HYDROCHLOROTHIAZIDE PO SCH (09:41)
[2019-06-27] MEDS: COREG PO SCH ×2 (09:41→20:26)
[2019-06-27] MEDS: MICARDIS PO SCH (09:42)
[2019-06-27] MEDS: TAMIFLU PO SCH ×2 (09:42→20:27)
[2019-06-27] MEDS: NS 1,000 ML IV SCH ×2 (09:43→18:09)
[2019-06-27 10:37] LABS: BANDS 20 % (0-1); LYMPHS 8 % (21-51); SEGS 72 % (42-75)
[2019-06-27] MEDS ORDERED: VANCOMYCIN IV PER PHARMACY MISC SCH (13:15)
[2019-06-27] MEDS ORDERED: VANCOMYCIN 2,300 MG in NS 500 ML IV ONE (14:00)
--- NOTE | 2019-06-27 16:38 | PROGRESS NOTE ---
DATE: 06/27/2019 SUBJECTIVE: Mr. Quinn was admitted yesterday evening with cough, fever, shortness of breath, not feeling well. Followed by Dr. Lexa Chin. A 69-year-old with a history of hypertension, hyperlipidemia, presented to the emergency department with a several day history of not feeling well. States he has had a fever and cough, recently diagnosed with influenza and was started on treatment with Tamiflu. Evaluated in the emergency room. Imaging done, it did show pneumonia and due to these presenting symptoms, was admitted back to the hospital. PAST MEDICAL HISTORY: Hypertension, hyperlipidemia. PAST SURGICAL HISTORY: Appendectomy, cholecystectomy, left carotid stent. So admitted with pneumonia, influenza A, hypertension, acute renal injury. OBJECTIVE: General: Today he is weak, remains afebrile. Vital signs: Temperature 97.9 degrees, pulse 77, respirations 22, blood pressure 105/45. HEENT: Pupils are equal and round. Lungs: Clear in all lung klein. Cardiovascular: Regular rhythm and rate without murmur or S3. Abdomen: Soft. Skin: Warm and dry. Urine output was 600 mL from yesterday. ASSESSMENT AND PLAN: 1. Pneumonia, influenza A. Continue present antibiotics. 2. Hypertension. Blood pressure followed. 3. Acute kidney injury. His creatinine came down to 1.8. Electrolytes, sodium 131, potassium 4.4, chloride 97, BUN 42. Blood count came down to 10,750, hematocrit 31, platelet count 171,000. REVIEW OF ORDERS: He is on Pravachol 80 mg a day, aspirin 162 mg a day, Coreg 25 mg b.i.d., hydrochlorothiazide 25 mg a day, nifedipine 90 mg a day, normal saline at 100 mL an hour, Tamiflu 75 mg p.o. b.i.d., Micardis 80 mg p.o. daily. Start him on vancomycin due to positive blood cultures with gram-positive cocci. Chest x-ray, left lower lobe pneumonia. cc: Sid Piña MD
[2019-06-27] MEDS: ZOFRAN IV PRN ×2 (18:10→22:57)
[2019-06-27] MEDS: PRAVACHOL PO SCH (20:26)
[2019-06-28] MEDS: ZOSYN 3.375 GM in NS 50 ML IV SCH ×4 (04:50→23:31)
[2019-06-28] MEDS: NORCO-5 PO PRN (05:35)
--- NOTE | 2019-06-28 09:07 | PROGRESS NOTE ---
DATE: 06/28/2019 SUBJECTIVE: Mr. Quinn feels a little bit better. He is still very puny and weak and tired. OBJECTIVE: Vital Signs: Temperature 99.7 degrees, pulse 70, respirations 14, blood pressure 86/43. Eyes: Pupils are equal and round. Lungs: Clear in all lung klein. Cardiovascular exam: Regular rhythm and rate without murmur or S3. Abdomen: Soft. Skin: Skin is warm and dry. : Urine output was 1600 mL. ASSESSMENT AND PLAN: 1. Pneumonia, influenza A. Continue present antibiotics. He does appear better. 2. Hypertension. Blood pressure is well controlled. 3. Acute kidney injury. It appears his renal function is improved. Creatinine down to 1.8. We will check electrolytes again tomorrow. Check another chest x-ray in the morning. He is on Coreg 25 mg twice a day, nifedipine ER 90 mg a day, Tamiflu 75 mg b.i.d., Micardis 80 mg daily. I have him on vancomycin and piperacillin. Note his blood cultures for gram-positive cocci still awaiting official ID, and influenza screen was positive for influenza A. cc: Sid Piña MD
[2019-06-28] MEDS: ASPIRIN EC PO SCH (09:45)
[2019-06-28] MEDS: TAMIFLU PO SCH ×2 (09:48→20:39)
[2019-06-28] MEDS: COREG PO SCH ×2 (10:00→20:41)
[2019-06-28] MEDS: TYLENOL PO PRN ×2 (10:53→20:38)
[2019-06-28] MEDS: NS 1,000 ML IV SCH ×2 (11:03→23:33)
[2019-06-28] MEDS: HYDROCHLOROTHIAZIDE PO SCH (14:00)
[2019-06-28] MEDS: MICARDIS PO SCH (14:00)
[2019-06-28] MEDS: VANCOMYCIN 1,500 MG in NS 250 ML IV SCH (14:54)
[2019-06-28] MEDS: PRAVACHOL PO SCH (20:39)
[2019-06-28] MEDS: ZOFRAN IV PRN (21:33)
[2019-06-28] MEDS: DUONEB (A & A) INH SCH (22:19)
[2019-06-29] MEDS: NORCO-5 PO PRN (00:31)
[2019-06-29] MEDS: DUONEB (A & A) INH SCH ×4 (03:48→23:22)
[2019-06-29] MEDS: ZOSYN 3.375 GM in NS 50 ML IV SCH ×2 (06:33→12:11)
[2019-06-29] MEDS: ZOFRAN IV PRN ×2 (08:15→12:42)
[2019-06-29] MEDS: HYDROCHLOROTHIAZIDE PO SCH (08:23)
[2019-06-29] MEDS: TAMIFLU PO SCH ×2 (08:23→20:49)
[2019-06-29] MEDS: ASPIRIN EC PO SCH (08:23)
[2019-06-29] MEDS: MICARDIS PO SCH (08:24)
[2019-06-29] MEDS: COREG PO SCH ×2 (08:24→23:11)
[2019-06-29] MEDS: NS 1,000 ML IV SCH ×2 (12:08→23:16)
[2019-06-29] MEDS: MAXIPIME 1 GM in NS 50 ML IV SCH ×2 (15:21→23:16)
--- NOTE | 2019-06-29 15:44 | PROGRESS NOTE ---
DATE: 06/29/2019 SUBJECTIVE: Today Mr. Quinn continues to be remarkably short of breath. HISTORY OF PRESENT ILLNESS: Mr. Quinn refers that he was recently treated for influenza A at [place] [id number], however, even taking the medications he still continues to have significant shortness of breath, so he came to the emergency room where he was evaluated and a chest x-ray did reveal left lower lobe pneumonia. Of note, Mr. Quinn was just recently treated for left lower lobe pneumonia and sent home on levofloxacin, just a little less than a month ago. OBJECTIVE: Vital signs: Blood pressure is 102/56, pulse of 97, respiration is 18, temperature 97.7 degrees. General: Mr. Quinn is a 68-year-old gentleman. He is in bed, does not seem to be in any distress. Mucosa is pink and moist. Anicteric and acyanotic. Neck: Supple. No JVD. Chest: Air entry is bilaterally reduced, more so to the left posterior lung field there are a lot of crackles and bronchial bronchovesicular breath sounds. Cardiovascular: Regular rate and rhythm. No murmurs, no rubs, no gallops. GI: Abdomen is soft, nontender. Bowel sounds present. Extremities: No pedal edema. CLAIMS AUDITOR: Patient is awake, alert, and oriented. There is no focal neurological deficit. IMAGING STUDIES: As I said, from the ER on the June 26 showed a left lower lobe pneumonia and a right-sided granuloma. DATA: No lab work today. ASSESSMENT AND PLAN: 1. Hypotension on presentation, secondary to severe sepsis. 2. Left lower lobe pneumonia. This seems to be a recurrent diagnosis on Mr. Quinn. We will get a CT scan as well. 3. Staph hominis species bacteremia 2/2, presumably coming from the lungs. We will get repeat blood cultures for tomorrow. We will also get an echocardiogram to rule out any possible endocarditis. 4. Acute kidney injury. Creatinine is trending down. We will repeat the numbers for tomorrow morning. 5. Lactic acidosis, improved. 6. Recently treated for influenza. cc: Isaiah Carrasquillo MD
[2019-06-29] MEDS: TYLENOL PO PRN ×2 (16:03→23:08)
[2019-06-29] MEDS: VANCOMYCIN 1,500 MG in NS 250 ML IV SCH (16:05)
--- NOTE | 2019-06-29 17:15 | Diag Imaging Result Doc PS360 ---
CT THORAX W/O CONTRAST - 06/29/2019 INDICATION: worsening symptoms of pneumonia COMPARISON: 06/04/2019 FINDINGS: There is no adenopathy. There is severe calcific coronary artery disease. Heart size is normal. There are cholecystectomy clips. Otherwise the upper abdomen appears grossly normal. There is dense infiltrate throughout the left lower lobe compatible with pneumonia. There are also patchy infiltrates in the left upper lobe. The right lung is clear. No pneumothorax or pleural effusion. The bones are intact. IMPRESSION: Multilobar pneumonia on the left side. This exam was performed using automated exposure control, adjustment of mA or kV according to patient size, and/or use of iterative reconstruction technique Electronically signed by Lonny Norwood 06/29/2019 5:13 PM
[2019-06-29] MEDS: PRAVACHOL PO SCH (20:49)
[2019-06-30] MEDS: DUONEB (A & A) INH SCH ×4 (03:32→22:28)
[2019-06-30] MEDS: MAXIPIME 1 GM in NS 50 ML IV SCH (06:13)
[2019-06-30 07:33] LABS: BASO# 0.02 X1000 (0.0-0.2); BASO% 0.2 % (0.0-0.8); EOS# 0.04 X1000 (0.0-0.7); EOS% 0.4 % (0.0-10.0); HEMOGLOBIN 9.5 g/dL (14.0-18.0); IMM GRAN# 0.11 X1000 (0.0-0.04); LYMPH% 8.8 % (20.5-51.1); MCH 27.8 PG (27-31); MCHC 32.8 g/dL (33-37); MCV 84.8 FL (81-99); MONO# 0.77 X1000 (0.11-0.59); MONO% 6.8 % (1.7-9.3); MPV 9.2 FL (7.4-10.4); NEUT# 9.37 X1000 (1.4-6.5); NEUT% 82.8 % (42.2-75.2); PLT 317 X1000 (130-400); RBC 3.42 XMIL (4.7-6.1); RDW 14.9 % (11.5-14.5); WBC 11.31 X1000 (4.8-10.8)
[2019-06-30 08:24] LABS: ALBUMIN 2.8 g/dL (3.5-5.0); CALCIUM 8.2 mg/dL (8.8-10.2); MAGNESIUM 2.3 mg/dL (1.5-2.7); PHOSPHORUS 6.1 mg/dL (2.7-4.5); POTASSIUM 3.6 mmol/L (3.5-5.1)
[2019-06-30] MEDS: ASPIRIN EC PO SCH (09:14)
[2019-06-30] MEDS: TAMIFLU PO SCH ×2 (09:14→22:44)
[2019-06-30] MEDS: COREG PO SCH ×2 (09:14→22:44)
[2019-06-30] MEDS: TYLENOL PO PRN ×3 (09:22→22:44)
[2019-06-30] MEDS ORDERED: TEFLARO 400 MG in NS 250 ML IV SCH (10:45)
[2019-06-30 11:00] LABS: CALCIUM 8.2 mg/dL (8.8-10.2); CREATININE 6.6 mg/dL (0.7-1.2); POTASSIUM 3.8 mmol/L (3.5-5.1)
[2019-06-30] MEDS ORDERED: LEVAQUIN 250 MG/D5W 250 MG/50 ML IVPB IV SCH (11:00)
[2019-06-30 11:08] LABS: ALLEN TEST NO; BE -12.3 mmoll (-3.0-3.0); BLOOD TYPE ARTERIAL; HCO3-(ACT) 15.3 mmoll (20.0-26.0); METHB 0.9 % (0.0-1.5); O2(CT) 13.2 mL/dL (15.0-23.0); PCO2(98.6) 28 mmHg (35-45); PO2(98.6) 72 mmHg (60-100); SAMPLE BLOOD; SAO2 95.4 % (95.0-100.0); THB 9.9 g/dL (11.5-17.4); pH(98.6) 7.28 (7.35-7.45)
[2019-06-30 11:09] LABS: MODALITY CANNULA
--- NOTE | 2019-06-30 11:13 | PROGRESS NOTE ---
DATE: 06/30/2019 SUBJECTIVE: This morning, Mr. Quinn refers not to feeling well. He said it is just generalized weakness, some occasional nauseating and he just does not feel well. He is still on 3 liters of nasal cannula saturating about 94%. OBJECTIVE: General exam: Mr. Quinn is a 68-year-old gentleman. He was sitting at the edge of the bed, does not seems to be in any acute cardiopulmonary distress. HEENT: Mucosa is pink and moist. Anicteric. Acyanotic. Neck: Supple. Some mild JVD noted. Chest: Air entry is bilaterally reduced with a few crackles posteriorly, more so to the left lower lobe. Cardiovascular: Regular rate and rhythm. No murmurs, no rubs, no gallops. GI: Abdomen is soft, nontender. Bowel sounds present. Extremities: About 1+ pedal edema. SAP PORTAL CONSULTANT: Patient is awake, alert, oriented. : Urine output was just about 600 undocumented. Patient is positive 6650. Documented 1 bowel movement today and he is tolerating about 75% of his dinner last night. IMAGING STUDIES: A CT scan of the chest, which was done yesterday without contrast, showed multifocal pneumonia on the left side. ASSESSMENT: 1. Acute hypoxemic respiratory failure. The patient continues to be on supplemental oxygen, is down to 3 liters this morning. 2. Left lower lobe pneumonia. The patient was on Zosyn with vancomycin. These have been discontinued because of worsening renal function, and he has been started on ceftaroline with Levaquin. 3. Staphylococcus hominis bacteremia. Repeat blood cultures are still pending. The patient was on vancomycin; however, this has been discontinued, and we have put him on ceftaroline. We have consulted Infectious Disease to help with the management. 4. Acute kidney injury. The patient's creatinine has skyrocketed to 7.0 this morning. We have called to make sure this is redrawn and that is not a mistake. We will also get a Cristina catheter in and measure very strictly intake and output. We will get some urinalysis and get a renal ultrasound and get Nephrology to evaluate Mr. Quinn. 5. Hypotension on presentation secondary to sepsis. 6. Lactic acidosis, improved. 7. Recently treated for influenza A. PLAN: So, in general, Mr. Quinn seems to be sicker today than yesterday. His renal function has remarkably gotten worse. According to the , she has noted that Mr. Quinn is making less urine than before. Of note Mr. Quinn presented with hypotension, septic, and was also on certain medications at home with the potential to compromise the kidneys, including the Telmisartan and the hydrochlorothiazide. In the hospital, I think he got a couple doses of vancomycin and Zosyn. This morning, his renal creatinine is up to 7. We have reviewed all his medication list and made pertinent changes. We will also consult Infectious Disease, as well as Nephrology to evaluate him. CRITICAL TIME SPENT: 45 minutes. cc: Isaiah Carrasquillo MD MTDD
--- NOTE | 2019-06-30 12:29 | INFECTIOUS DISEASE CONSULT REP ---
DATE: 06/30/2019 CONCLUSION: The patient has a Staphylococcus hominis bacteremia. He also has a left-sided pneumonia. He also has influenza A. The patient also complained of diarrhea, and he may have an infectious type of diarrhea or Clostridium difficile. The patient may have urinary tract infection. RECOMMENDATIONS: I have discontinued ceftaroline and Levaquin, and instead I put the patient on daptomycin and Zyvox. Some of the side effects of the antibiotics, including rash, diarrhea, muscle toxicity, and hematotoxicity have been explained to the patient who agrees with treatment. I have discontinued Pravachol because it can interact with daptomycin in enhancing the possibility of muscle toxicity. I told the patient that once he is over treatment with the antibiotics, he can resume his Pravachol treatment. I am going to order a stool for regular culture and for C. difficile. I am also going to order a urine culture. DISCUSSION: The patient said approximately a week ago, he started having cough. He started coughing and feeling weak and having fever. He also has had diarrhea. The patient's CBC shows a white count of 11,310, hemoglobin 9.5, and platelet count 317,000. Patient's blood gases show a pH of 7.28, a PO2 of 72, and a pCO2 of 28. Creatinine is 6.6. GFR is 8. Urinalysis showed white cells but no bacteria. The both blood cultures are growing Staphylococcus hominis. Repeat blood cultures are pending. CT scan of the chest shows multilobar pneumonia on the left side. PAST MEDICAL HISTORY/REVIEW OF SYSTEMS: Eyes and ears: His hearing and vision are good. Neck: No stiffness. Respiratory: See present illness. Cardiac: No chest pain or palpitations. GI: See present illness. : No dysuria or flank pain. Neurologic: No seizures. No loss of motor or sensory function. PREVIOUS HOSPITALIZATIONS AND OPERATIONS: He has been admitted before to the hospital because of pneumonia. He has had a cholecystectomy, appendectomy, and a stent placed in his carotid artery. MEDICAL DISEASES: Positive for obesity, hypertension. The patient also has peripheral vascular disease. INFECTIOUS DISEASE HISTORY: Positive for pneumonia. Negative for urinary tract infection. FAMILY HISTORY: Positive for hypertension and myocardial infarction. SOCIAL HISTORY: [place] He is . He does not have any pets at home. He stopped smoking cigarettes in 1985. He does not drink alcoholic beverages or abuse drugs. 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 DRUG ALLERGIES: Neosporin ointment, Lodine, Biaxin, neomycin, bacitracin, and the patient also is allergic to latex. HOME MEDICATIONS: Consist of carvedilol, aspirin, codeine, nifedipine, Nitrostat, Pravachol, and telmisartan/hydrochlorothiazide. PHYSICAL EXAMINATION: Vital Signs: Temperature is 97.8 degrees, pulse 89, respirations 20, blood pressure 167/60. The patient is 5 feet 11 inches tall, weighs 204 pounds. General: This is an obese, elderly male. He is in no acute distress. Head/eyes/ears/nose/throat: Can hear my spoken words and see near objects. There is no drainage from his nose or ears. Neck: No meningismus. Lungs: Clear to auscultation. Cardiovascular: Regular heart rate. I did not hear a murmur on the patient. Abdomen: Soft and not tender. Neurologic: Patient is alert. He can move his extremities. There is no tremor. His sensation is intact to touch. Memory as regarding his medical history appeared to be intact. Integument: No rash noted. Thank you for the consult. cc: Jeromy Alfaro MD
[2019-06-30] MEDS: CUBICIN 500 MG in NS 100 ML IV SCH (12:42)
[2019-06-30 13:02] LABS: UR CREAT RANDOM 29.9 mg/dL (14-26)
[2019-06-30] MEDS: ZYVOX PO SCH ×2 (16:48→22:44)
[2019-07-01] MEDS: DUONEB (A & A) INH SCH ×4 (03:15→21:38)
[2019-07-01 07:38] LABS: BASO# 0.02 X1000 (0.0-0.2); BASO% 0.2 % (0.0-0.8); EOS# 0.05 X1000 (0.0-0.7); EOS% 0.5 % (0.0-10.0); HEMATOCRIT 31.4 % (42.0-52.0); HEMOGLOBIN 10.4 g/dL (14.0-18.0); IMM GRAN% 3.2 % (0.0-0.5); LYMPH# 0.76 X1000 (1.2-3.4); LYMPH% 8.1 % (20.5-51.1); MCH 27.7 PG (27-31); MCHC 33.1 g/dL (33-37); MCV 83.5 FL (81-99); MONO# 0.99 X1000 (0.11-0.59); MONO% 10.5 % (1.7-9.3); MPV 9.2 FL (7.4-10.4); NEUT# 7.28 X1000 (1.4-6.5); NEUT% 77.5 % (42.2-75.2); PLT 316 X1000 (130-400); RBC 3.76 XMIL (4.7-6.1); RDW 14.9 % (11.5-14.5)
[2019-07-01 08:00] LABS: ALBUMIN 2.7 g/dL (3.5-5.0); CALCIUM 8.7 mg/dL (8.8-10.2); CREATININE 7.2 mg/dL (0.7-1.2); PHOSPHORUS 8.1 mg/dL (2.7-4.5); POTASSIUM 3.7 mmol/L (3.5-5.1)
[2019-07-01] MEDS: ZYVOX PO SCH ×2 (09:05→20:08)
--- NOTE | 2019-07-01 09:05 | Diag Imaging Result Doc PS360 ---
CHEST-PORTABLE - 07/01/2019 INDICATION: sob COMPARISON: 06/26/2019 FINDINGS: There is worsening opacification of the left lung base consistent with pneumonia and/or effusion. Stable mild cardiomegaly. The right lung remains clear. IMPRESSION: Worsening opacification of the left lung base. Electronically signed by Lonny Norwood 07/01/2019 9:03 AM
[2019-07-01] MEDS: COREG PO SCH ×2 (09:06→20:08)
[2019-07-01] MEDS: ASPIRIN EC PO SCH (09:06)
[2019-07-01] MEDS: TAMIFLU PO SCH ×2 (09:06→20:07)
[2019-07-01] MEDS: TYLENOL PO PRN ×2 (12:41→18:29)
--- NOTE | 2019-07-01 13:19 | NEPHROLOGY CONSULTATION ---
DATE: 07/01/2019 REASON FOR CONSULTATION: Acute kidney injury. HISTORY OF PRESENT ILLNESS: Mr. Quinn is a 68-year-old white male with a history of hypertension and hyperlipidemia. He has been ill with the flu, cough, sputum, fever, etc. He was treated with Tamiflu as an outpatient but symptoms did not improve so she came to the emergency room. He was admitted with a provisional diagnosis of pneumonia and treated with empiric broad-spectrum antibiotics including Zosyn and vancomycin. His initial creatinine was 2.1 and with fluids improved to 1.8 the next morning. Follow-up labs with worsening creatinine 7.0 on yesterday, 7.2 today. His urine output is increased and he had almost 4 L of urine in the last 24 hours. He is certainly feeling better and states his urine color looks more normal. Shortness of breath improved but he is still coughing. Minimal sputum production at this point. Appetite is low. P.o. intake has been low. He was treated with IV fluid resuscitation on admission such that even after 3.6 L of urine output in the last 24 hours, he remains in positive fluid balance of about 4 L. PAST MEDICAL HISTORY: As above. CURRENT MEDICATIONS: Include linezolid, acetaminophen, albuterol, ipratropium, aspirin, carvedilol, daptomycin, hydrocodone, ondansetron, oseltamivir. ALLERGIES: Bacitracin. Clarithromycin. Etodolac. SOCIAL HISTORY: He is . Lives in the [facility]. Former smoker. No alcohol or tobacco. FAMILY HISTORY: Otherwise noncontributory. REVIEW OF SYSTEMS: Noncontributory. PHYSICAL EXAMINATION: Vital Signs: Blood pressure 165/69, heart rate 70, respirations 19. Afebrile. General: No acute distress. He is sitting erect on the side of the bed. Skin: Warm and dry. A few bruises. HEENT: Conjunctivae are pink. Pupils are equal. Oropharynx is clear. Neck: Neck veins are not visible in the erect position. Heart: Regular. No murmurs, rubs or gallops. Lungs: Have equal excursion. Equal breath sounds. Coarse breath sounds especially on the left with a few scattered crackles. No wheezes. Abdomen: Soft, nontender. Bowel sounds present. Extremities: 1+ edema. No clubbing or cyanosis. Neurologic: Nonfocal. IMPRESSION: Acute kidney injury. Likely acute tubular necrosis secondary to sepsis. His labs seem to have plateaued and his urine output is picking up. He is likely in the early recovery phase of acute tubular necrosis. Volume status, electrolytes, acid base all in target with the exception of serum bicarbonate of 13 with an anion gap of 22. This has stabilized in the last 24 hours. BUN is 95, but no overt symptoms of uremia except for his anorexia. No dialysis at this time but I counseled the patient and family that this may be required for his renal recovery is complete. Overall good prognosis. cc: Ran Jay MD
--- NOTE | 2019-07-01 14:02 | Diag Imaging Result Doc PS360 ---
EXAM: US RENAL 2 (RETROPER) COMPLETE HISTORY: dyan/arf TECHNIQUE: Renal ultrasound COMPARISON: None. FINDINGS: The right kidney measures 11.6 x 6.6 x 5.8 cm. Normal renal echotexture and cortical thickness. No renal stone or hydronephrosis. The left kidney measures 10.2 x 5.8 x 5.4 cm. Normal renal echotexture and cortical thickness. No renal stone or hydronephrosis. The urinary bladder is not distended. IMPRESSION: Normal renal ultrasound Electronically signed by Dallas Edward 07/01/2019 2:00 PM
--- NOTE | 2019-07-01 14:50 | ECHO REPORT ---
ORDER DATE: 06/29/2019 INTERPRETING PHYSICIAN: Td Rivas MD. ECHOCARDIOGRAPHIC MEASUREMENTS: 1. Aorta 3.2 cm. 2. Left atrium 5 cm. 3. Interventricular septum 1.8 cm. 4. Left ventricular posterior wall 1.8 cm. 5. Diastolic diameter 4.7 cm. FINDINGS: 1. Tricuspid valve was normal. 2. Aortic valve leaflets are trileaflet. 3. Pulmonic valve was normal. There is trace pulmonary regurgitation. 4. Mitral valve was normal. 5. There is trace tricuspid regurgitation. Peak velocity across the tricuspid valve was 3.5 M/sec. Pulmonary artery systolic pressure of 50 mmHg. 6. There is trace to mild mitral regurgitation. 7. Peak velocity across the aortic valve less than 2 m/sec. There is no aortic stenosis or regurgitation. 8. Normal left ventricular cavity size. Estimated ejection fraction of 60 to 65 percent, severe LVH. 9. Technically suboptimal study. Poor acoustic window. 10. There is no pericardial effusion or obvious intracardiac mass or thrombus seen. cc: MD Isaiah Villagomez MD [facility]
--- NOTE | 2019-07-01 15:07 | INFECTIOUS DISEASE PROGRESS NO ---
DATE: 07/01/2019 PRESENT ILLNESS: The patient has a Staphylococcus hominis bacteremia, a left-sided pneumonia, and influenza A. Unfortunately, the patient has gone into renal failure. The patient complained of diarrhea, but his stool culture and stool for Clostridium difficile are both negative. Also, the patient may have a urinary tract infection, but the urine culture turned out to be negative. The patient does have, however, an immunoglobulin deficiency. IgG is high at 1858, but unfortunately, IgA is low at 43. And, finally, the patient may be developing oral candidiasis. MEDICATIONS: The patient is on day 1 of daptomycin and Zyvox. The patient finishes tomorrow with Tamiflu. PHYSICAL EXAMINATION: Vital Signs: Temperature is 97.5 degrees, pulse 70, respirations 19, blood pressure 165/69. General: This is a somewhat ill-appearing elderly male. He is in no acute distress. Overall, he told me he thinks he is getting better. Head/eyes/ears/nose/throat: He can hear my spoken words and see near objects. The patient's oral mucosa seems more erythematous than when I 1st saw him. I did not see any definite white patches however. Neck: No stiffness and no pain with movement. Lungs: Clear to auscultation. Cardiovascular: Heart rate is regular. Abdomen: Soft and nontender. Neurologic: The patient is alert. He talks in a coherent fashion. Extremities: He can move his extremities. There are no tremors. LAB AND X-RAY: The CBC shows a white count of 9400, hemoglobin 10.4, platelet count 316,000. Creatinine is 7.2. GFR is 8. IgG is 1858, IgA is 43. Stool culture and Clostridium difficile toxin and antigen are negative. Repeat blood cultures are pending. Urine cultures negative. Chest x-ray shows worsening of the left lower lobe pneumonia/atelectasis. Renal ultrasound is normal. ASSESSMENT AND PLAN: Patient has Staphylococcus bacteremia and also a pneumonia. I am going to continue with daptomycin to treat the patient's bacteremia and Zyvox to treat the patient's pneumonia. Since the x-ray looks worse, I am going to add back cefepime in case the patient has another organism causing the infection such as a gram-negative johanny like Serratia or Enterobacter or Pseudomonas. Also since the patient may be developing oral candidiasis, I am going to start the patient on nystatin swish and swallow. COMORBIDITIES: The patient is obese. He did smoke cigarettes but stopped in 1985. 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 cc: Jeromy Alfaro MD
[2019-07-01] MEDS: MAXIPIME 1 GM in NS 50 ML IV SCH (15:57)
[2019-07-01] MEDS: MYCOSTATIN SUSP PO SCH ×3 (15:57→20:08)
--- NOTE | 2019-07-01 16:16 | PROGRESS NOTE ---
DATE: 07/01/2019 SUBJECTIVE: This morning Mr. Quinn refers to be doing a lot better. He was sitting at the edge of the bed, looks a lot more calmer and less short of breath than days before. and daughter were both at the bedside. OBJECTIVE: Vital Signs: Blood pressure is 165/69, pulse of 70, respirations 18, temperature 97.5 degrees. General: Mr. Quinn is a 68-year-old elderly gentleman. He was sitting at the edge of the bed in no distress. Mucosa is pink and moist. Anicteric. Acyanotic. Neck: Supple. No JVD. Chest: Air entry is bilaterally reduced. There are still some crackles in the posterior lung klein. Cardiovascular: Regular rate and rhythm. She did not hear any murmurs or rubs or gallops. Gastrointestinal: Abdomen is soft, nontender. Bowel sounds present. There is no hepatosplenomegaly. Extremities: About 1+ pedal edema. Central Nervous System: Patient is awake, alert, oriented. There is no focal deficit. Input and Output: The patient's input and output, urine output was 3200 on Cristina catheter yesterday. He is currently a total positive about of about 3925. LABORATORY DATA: This morning, white cell count has normalized. Hemoglobin is 10.4, platelet count 316,000. Chemistry is also reviewed. Creatinine is up slightly to 7.2. Sodium in the urine was 59. IMAGING STUDIES: Today ultrasound of the kidneys shows normal renal ultrasound. A chest x-ray this morning seems to suggest worsening opacification of the left lung base. Procalcitonin level is still pending. Immunoglobulin levels have been reviewed. Both IgA and IgM are remarkably low. However, IgG is normal. ASSESSMENT: 1. Acute hypoxemic respiratory failure, improved. The patient is down to 2 liters of supplemental oxygen. 2. Left lower lobe pneumonia x-ray this morning seems to suggest some worsening; however, clinically the patient looks remarkably stable. Antimicrobials have been changed and they are being monitored by Infectious Disease. 3. Staphylococcus hominis bacteremia. Repeat blood cultures from yesterday are still pending. 4. Nonoliguric acute kidney injury due to acute tubular necrosis, noted. Nephrology has been consulted. 5. Hypotension on admission secondary to sepsis. However, the patient was also on blood pressure medications and this could have confounded the presentation. Blood pressures have been fairly stable during the hospital course. 6. Lactic acidosis, improved. 7. Recently treated for influenza A. SUMMARY: In general, I think Mr. Quinn is doing a lot better. He looks clinically more stable today despite his creatinine has worsened slightly, and chest x-ray seems to suggest mild worsening. His antibiotics have been reviewed by Infectious Disease, and the patient has also been seen by Nephrology today. We are going to continue with the current management. I have explained my plan and findings to the and the daughter who were at the bedside at the time of the encounter. cc: Isaiah Carrasquillo MD
[2019-07-01 17:12] LABS: URINE SOURCE VOIDED
[2019-07-01 17:17] LABS: BILIRUBIN URINE NEGATIVE (NEGATIVE); BLOOD URINE MODERATE (NEGATIVE); COLOR STRAW; GLUCOSE URINE NEGATIVE (NEGATIVE); KETONE URINE NEGATIVE (NEGATIVE); LEUKOCYTES URINE TRACE (NEGATIVE); NITRITE URINE NEGATIVE (NEGATIVE); PROTEIN URINE 30 mg/dL (NEGATIVE); SP GRAVITY URINE 1.009; TURBIDITY URINE CLEAR (CLEAR); UROBILINOGEN URINE NORMAL (NORMAL)
[2019-07-01 17:18] LABS: UR EPITHELIAL CELLS <10 /HPF (<10); URINE BACTERIA NEGATIVE /HPF; URINE RBC 20-40 /HPF (<10); URINE WBC <10 /HPF (<10)
[2019-07-02] MEDS: DUONEB (A & A) INH SCH ×4 (03:34→21:55)
[2019-07-02] MEDS: MAXIPIME 1 GM in NS 50 ML IV SCH ×2 (03:47→15:55)
[2019-07-02 07:58] LABS: ALBUMIN 2.5 g/dL (3.5-5.0); CALCIUM 8.6 mg/dL (8.8-10.2); CREATININE 6.8 mg/dL (0.7-1.2); PHOSPHORUS 7.8 mg/dL (2.7-4.5); POTASSIUM 3.7 mmol/L (3.5-5.1)
[2019-07-02] MEDS: ZOFRAN IV PRN (08:12)
[2019-07-02] MEDS: COREG PO SCH ×2 (08:24→20:43)
[2019-07-02] MEDS: MYCOSTATIN SUSP PO SCH ×3 (08:24→20:43)
[2019-07-02] MEDS: NORCO-5 PO PRN ×2 (08:24→17:31)
[2019-07-02] MEDS: ZYVOX PO SCH ×2 (08:24→20:43)
[2019-07-02] MEDS: ASPIRIN EC PO SCH (08:24)
[2019-07-02] MEDS: TAMIFLU PO SCH (08:24)
--- NOTE | 2019-07-02 10:34 | PROGRESS NOTE ---
DATE: 07/02/2019 SUBJECTIVE: Mr. Quinn this morning refers to be doing fairly okay. However, he has generalized pains, and he felt slightly nauseated early on. He said he only had some bites of his breakfast. His son was at the bedside at the time of the encounter. I was also able to communicate with the on the phone. OBJECTIVE: Vital Signs: Blood pressure 181/62, pulse of 95, respirations 19, and temperature 97.6 degrees. General: Mr. Quinn is a 68-year-old gentleman. He was in bed in no seemingly cardiopulmonary distress. HEENT: Mucosa is pink and moist. Anicteric. Acyanotic. Neck: Supple. There was no JVD. Respiratory: There is good air entry bilaterally. No crackles and no rhonchi. No accessory muscle use. Cardiovascular: Regular rate and rhythm. No murmurs, no rubs, no gallops. GI: Abdomen is soft and nontender. Bowel sounds present. There is no hepatosplenomegaly. Extremities: 1+ pedal edema. DIRECTOR COUNSELING BUREAU: Patient is awake, alert, and oriented. Musculoskeletal: There is some mild tenderness to the entire lower back on palpation. LABORATORY: Patient's I's and O's, urine output was 4600. He is currently negative balance of 1265. Chemistry is reviewed. Creatinine is down to 6.8. However, BUN is slightly elevated. So far, repeat blood cultures have come back 48 hours negative. The patient had no bowel output yesterday. IMAGING STUDIES: None for today. An ultrasound of the kidneys yesterday showed normal renal ultrasound. CURRENT MEDICATIONS: The patient's current medications have all been reviewed. She is still on cefepime, daptomycin and linezolid. ASSESSMENT: 1. Acute hypoxemic respiratory failure. Patient continues to be on supplemental oxygen. 2. Left lower lobe pneumonia. We will continue with the current antimicrobial coverage including cefepime and Zyvox. ID is on board. 3. Staphylococcus hominis bacteremia. Repeat blood cultures have come back negative. The patient is on daptomycin. 4. Nonoliguric acute kidney injury presumably due to ATN. Creatinine is trending down. Patient is making adequate urine. Nephrology is on board. 5. Hypotension on admission secondary to sepsis improved. 6. Lactic acidosis resolved. 7. Recently treated for influenza A. 8. Hypertension. Mr. Quinn normally takes about 4 different types of blood pressure medications at home. When he came in, he was remarkably hypotensive so these were all withheld. However, his blood pressures have now started to go up, so we are going to start him back on lower doses of carvedilol and nifedipine today. Continue to monitor him. I have explained my findings and plan to the son and the . cc: Isaiah Carrasquillo MD MTDD
[2019-07-02] MEDS: ADALAT CC PO SCH (12:08)
[2019-07-02] MEDS: CUBICIN 500 MG in NS 100 ML IV SCH (12:08)
--- NOTE | 2019-07-02 13:59 | NEPHROLOGY PROGRESS NOTE ---
DATE: 07/02/2019 SUBJECTIVE: He is still lying in the bed. He complains of some shortness of breath, but comfortable overall. On supplemental oxygen. OBJECTIVE: Vital Signs: Blood pressure 181/62, heart rate 95, respirations 19, afebrile. Intake is not recorded but output is 4.6 L. General: No acute distress. Skin: Warm and dry. Neck: Neck vein distention is not present. Heart: Regular. No gallops. Lungs: Have equal excursion. No crackles or wheezes. Abdomen: Soft. Bowel sounds present. Extremities: 1+ edema. IMPRESSION: Acute kidney injury. Ischemic acute tubular necrosis. His labs have plateaued. Excellent urine output. No acute indications for hemodialysis. Continue current care. cc: Ran Jay MD
--- NOTE | 2019-07-02 14:51 | INFECTIOUS DISEASE PROGRESS NO ---
DATE: 07/02/2019 PRESENT ILLNESS: The patient has a Staph hominis bacteremia and left lower lobe pneumonia and also influenza A. The patient's stool for Clostridium difficile and for culture are all negative. The patient does have a low IgA level, and his IgG level is high. The patient today does not show any evidence of oral candidiasis. MEDICATIONS: This is day 2 of treatment with daptomycin and Zyvox, and day 1 of treatment with cefepime. PHYSICAL EXAMINATION: Vital Signs: Temperature is 97.6 degrees, pulse 95, respirations 19, blood pressure 181/62. General: This is an ill-appearing, obese, elderly male. He is in no acute distress. Head/eyes/ears/nose/throat: He can hear my spoken words and see near objects. The patient's mouth does not have any white patches. Neck: No pain with movement. Lungs: Clear to auscultation. Cardiovascular: Heart rate is regular. Abdomen: Soft and nontender. Neurologic: The patient is sleeping, but he is fully arousable. He can move his extremities. There is no tremor. LAB AND X-RAY: Chest x-ray shows left lower lobe pneumonia. A procalcitonin level is 80. Creatinine is 6.8. GFR is 8. Stool for culture and for Clostridium difficile is negative. Urine and blood cultures are negative. ASSESSMENT AND PLAN: The patient has Staphylococcus bacteremia with an associated pneumonia. My plan is to continue Zyvox and daptomycin to treat it. Also, since the x-ray looked worse despite getting treated for Staphylococcus, I added back cefepime in case there is a gram-negative organism that is causing some of the pneumonia as well. The patient is receiving nystatin swish and swallow for possible oral candidiasis. COMORBIDITIES: The patient is obese. He stopped smoking cigarettes in 1985. The patient has an IgA deficiency, and unfortunately there is not a replacement product for that. cc: Jeromy Alfaro MD
[2019-07-03] MEDS: MAXIPIME 1 GM in NS 50 ML IV SCH ×2 (02:10→14:39)
[2019-07-03] MEDS: DUONEB (A & A) INH SCH ×4 (03:46→21:09)
[2019-07-03] MEDS: NORCO-5 PO PRN ×2 (06:23→12:36)
[2019-07-03 07:57] LABS: BASO# 0.03 X1000 (0.0-0.2); BASO% 0.2 % (0.0-0.8); EOS# 0.16 X1000 (0.0-0.7); EOS% 1.2 % (0.0-10.0); HEMATOCRIT 31.1 % (42.0-52.0); HEMOGLOBIN 10.5 g/dL (14.0-18.0); IMM GRAN% 4.3 % (0.0-0.5); LYMPH% 7.2 % (20.5-51.1); MCH 28.3 PG (27-31); MCHC 33.8 g/dL (33-37); MCV 83.8 FL (81-99); MONO# 1.07 X1000 (0.11-0.59); MONO% 7.7 % (1.7-9.3); NEUT# 10.96 X1000 (1.4-6.5); NEUT% 79.4 % (42.2-75.2); PLT 410 X1000 (130-400); RBC 3.71 XMIL (4.7-6.1); RDW 14.9 % (11.5-14.5); WBC 13.82 X1000 (4.8-10.8)
[2019-07-03 08:23] LABS: ALBUMIN 2.6 g/dL (3.5-5.0); CALCIUM 8.9 mg/dL (8.8-10.2); CREATININE 6.4 mg/dL (0.7-1.2); PHOSPHORUS 7.1 mg/dL (2.7-4.5); POTASSIUM 3.5 mmol/L (3.5-5.1)
[2019-07-03] MEDS: ZYVOX PO SCH ×2 (09:48→20:50)
[2019-07-03] MEDS: ASPIRIN EC PO SCH (09:48)
[2019-07-03] MEDS: COREG PO SCH ×2 (09:48→20:50)
[2019-07-03] MEDS: ADALAT CC PO SCH (09:48)
[2019-07-03] MEDS: MYCOSTATIN SUSP PO SCH ×4 (09:49→20:50)
--- NOTE | 2019-07-03 12:19 | PROGRESS NOTE ---
DATE: 07/03/2019 SUBJECTIVE: This morning Mr. Quinn referred to be doing fairly okay. He denies any new complaints. OBJECTIVE: Vitals: Blood pressure is 144/60, pulse of 95, respiration is 18, temperature 97.5 degrees. General exam: Mr. Quinn is a 68-year-old gentleman. He was sitting up at the edge of the bed, no distress. HEENT: Mucosa is pink and moist. Anicteric. Acyanotic. Neck: Supple. Chest: There is good air entry bilateral. No crepitations. No rhonchi. Cardiovascular: Regular rate and rhythm. No murmurs, no rubs, no gallops. GI/Abdomen: Soft, nontender. Bowel sounds present. There is no hepatosplenomegaly. Extremities: About 1+ pedal edema. MANAGER CCU: Patient is awake, alert, and oriented. INTAKE/OUTPUT: Urine output was 2700. He is currently negative balance of 2835. CURRENT MEDICATIONS: Have all been reviewed. ASSESSMENT: 1. Acute hypoxemic respiratory failure. Patient continues to be on supplemental oxygen. 2. Left lower lobe dense pneumonia with procalcitonin level reported to be 80, extremely high. He is currently on cefepime, Zyvox. 3. Staphylococcus hominis bacteremia. Repeat blood cultures have been negative. Patient is on daptomycin presumably for a total of 14 days. 4. Nonoliguric acute kidney injury presumably due to acute tubular necrosis. Creatinine is trending down. Patient continues to make adequate urine. 5. Hypotension on admission secondary to sepsis, improved. 6. Lactic acidosis, resolved. 7. Recently treated for influenza A. Tamiflu has been discontinued. 8. Uncontrolled hypertension. Patient has been started back on nifedipine. Blood pressures are a lot better now. PLAN: So, in general, I think Mr. Quinn is doing well. He is 7 days in hospital. Presented mainly because of shortness of breath, extremely hypoxemic, found to have a dense left lower lobe pneumonia. He has been on antibiotics. Unfortunately, his hospital course has been complicated with acute kidney injury, which seems to be progressively getting better. We are going to continue with the current antimicrobial therapy. Repeat his chest x-ray Friday and go from there. I have reviewed my findings and plan with Mr. Quinn and the , who was at the bedside. cc: Isaiah Carrasquillo MD
--- NOTE | 2019-07-03 13:46 | NEPHROLOGY PROGRESS NOTE ---
DATE: 07/03/2019 SUBJECTIVE: He is sitting up on the side of the bed. No new complaints. No shortness of breath, nausea, or vomiting. OBJECTIVE: Vital Signs: Blood pressure 144/60, heart rate 95, respiration 18, afebrile. General: No acute distress. Skin: Warm and dry. Neck: Neck veins are not distended. Heart: Regular. Lungs: Equal. Abdomen: Benign. Extremities: 2+ edema. IMPRESSION AND PLAN: Acute kidney injury. Urine output is excellent. 2.7 L in the last 24 hours. His BUN and creatinine are roughly stable. No acute indications for renal replacement therapy. cc: Ran Jay MD
[2019-07-03] MEDS: ZOFRAN IV PRN (16:04)
[2019-07-04] MEDS: NORCO-5 PO PRN ×3 (00:36→18:42)
[2019-07-04] MEDS: MAXIPIME 1 GM in NS 50 ML IV SCH ×3 (02:10→15:02)
[2019-07-04] MEDS: DUONEB (A & A) INH SCH ×4 (03:19→22:01)
[2019-07-04] MEDS: ADALAT CC PO SCH (10:56)
[2019-07-04] MEDS: ASPIRIN EC PO SCH (10:57)
[2019-07-04] MEDS: COREG PO SCH ×3 (10:57→21:00)
[2019-07-04] MEDS: ZYVOX PO SCH ×3 (10:58→21:00)
[2019-07-04] MEDS: MYCOSTATIN SUSP PO SCH ×4 (10:58→21:00)
[2019-07-04] MEDS: CUBICIN 500 MG in NS 100 ML IV SCH (12:57)
[2019-07-04] MEDS: ZOFRAN IV PRN (15:01)
--- NOTE | 2019-07-04 16:04 | PROGRESS NOTE ---
DATE: 07/04/2019 SUBJECTIVE: This morning Mr. Quinn referred to be doing well denies any new complaints. Said the shortness of breath significantly improved. However, he did say he does not have very good appetite. OBJECTIVE: Vital signs: Blood pressure is 169/58, pulse of 87, respiration is 16, temperature 97.9 degrees. General: Mr. Quinn 68-year-old gentleman he is in bed no distress. Mucosa is pink and moist. Anicteric. Acyanotic. Neck: Supple. Respiratory: There is good air entry bilateral, few crackles in the left posterior lung klein. Cardiovascular: Regular rate and rhythm. Abdomen: Soft, nontender. Bowel sounds present. Extremities: No pedal edema. 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 Patient I's and O's urine output was 1700. Patient is currently negative balance over 4000. LABORATORY DATA: None for this morning but CK kinase was 1033 which has significantly increased since admission. Of note patient is on daptomycin. ASSESSMENT: 1. Acute hypoxemic respiratory failure, improved. Patient is on minimum supplemental oxygen. 2. Left lower lobe dense pneumonia with a procalcitonin level of 80. Patient continues to be on cefepime and Zyvox. Infectious disease is on board. 3. Staphylococcus hominis bacteremia. Repeat blood cultures have been negative. Patient is on daptomycin. Unfortunately his CK has skyrocketed. We will wait on Infectious Disease to see if they would make any changes. 4. Nonoliguric acute kidney injury presumably due to acute tubular necrosis, patient continues to make adequate urine. Creatinine was trending down. We do not have any labs this morning. We will follow this up tomorrow. 5. Sepsis on presentation associated with hypotension and lactic acidosis resolved. 6. Recently treated for influenza A, Tamiflu has been completed. 7. Hypertension. Patient has been started back on his home medications. So in general I think Mr. Quinn is doing well, clinically stable. Creatinine seems to be trending down. We are going to follow this up tomorrow morning. Unfortunately, his CK has skyrocketed and we would wait on Infectious Disease to see if they would want to change the dose or change the antimicrobial altogether for the Staph bacteremia. cc: Isaiah Carrasquillo MD [facility]
[2019-07-05] MEDS: MAXIPIME 1 GM in NS 50 ML IV SCH ×2 (02:07→15:52)
[2019-07-05] MEDS: DUONEB (A & A) INH SCH ×4 (02:41→22:39)
[2019-07-05] MEDS: ZOFRAN IV PRN ×2 (04:42→16:54)
--- NOTE | 2019-07-05 07:22 | Diag Imaging Result Doc PS360 ---
EXAM: CHEST-1 VIEW INDICATION: pneumonia TECHNIQUE: One view COMPARISON: 07/01/2019 FINDINGS: There has been interval significant improvement of the consolidation at the left lung base. The right lung remains clear. No new consolidation is identified. Cardiac silhouette is stable. IMPRESSION: Interval improvement. Electronically signed by Lucian Carney 07/05/2019 7:20 AM
[2019-07-05 07:33] LABS: BASO# 0.06 X1000 (0.0-0.2); BASO% 0.4 % (0.0-0.8); EOS# 0.29 X1000 (0.0-0.7); EOS% 1.8 % (0.0-10.0); HEMOGLOBIN 10.5 g/dL (14.0-18.0); IMM GRAN# 0.65 X1000 (0.0-0.04); IMM GRAN% 3.9 % (0.0-0.5); LYMPH# 1.61 X1000 (1.2-3.4); LYMPH% 9.7 % (20.5-51.1); MCH 27.8 PG (27-31); MCHC 32.8 g/dL (33-37); MCV 84.7 FL (81-99); NEUT# 12.92 X1000 (1.4-6.5); NEUT% 78.2 % (42.2-75.2); PLT 498 X1000 (130-400); RBC 3.78 XMIL (4.7-6.1); RDW 14.9 % (11.5-14.5); WBC 16.53 X1000 (4.8-10.8)
[2019-07-05 08:07] LABS: CALCIUM 9.4 mg/dL (8.8-10.2); CREATININE 3.5 mg/dL (0.7-1.2); POTASSIUM 3.4 mmol/L (3.5-5.1)
[2019-07-05] MEDS ORDERED: KLOR-CON PO ONE (08:29)
[2019-07-05] MEDS: ASPIRIN EC PO SCH (09:30)
[2019-07-05] MEDS: ADALAT CC PO SCH (09:30)
[2019-07-05] MEDS: ZYVOX PO SCH ×2 (09:31→20:17)
[2019-07-05] MEDS: COREG PO SCH ×2 (09:31→20:17)
[2019-07-05] MEDS: MYCOSTATIN SUSP PO SCH ×5 (09:31→20:17)
[2019-07-05] MEDS: NORCO-5 PO PRN (09:31)
[2019-07-05 12:44] LABS: INR 1.34; PROTIME 16.8 Seconds (11.0-16.0)
--- NOTE | 2019-07-05 13:36 | INFECTIOUS DISEASE PROGRESS NO ---
DATE: 07/05/2019 PRESENT ILLNESS: The patient has a Staphylococcus hominis bacteremia and left lower lobe pneumonia. There could be another organism also causing the pneumonia. The patient had influenza A but he has received treatment for it and he does not need any further treatment for it. The patient has a high IgG level and a low IgA level. Unfortunately there is not any kind of replacement product for the low IgA level. MEDICATIONS: This is day 5 of treatment with daptomycin and Zyvox and day 4 of treatment with cefepime. PHYSICAL EXAMINATION: Vital Signs: Temperature is 97.6 degrees, pulse 85, respirations 16, blood pressure is 195/83. General: This is an ill-appearing and obese elderly male. He is in no acute distress. Head/eyes/ears/nose/throat: He can hear my spoken words and see near objects. I did not see any white coating of his tongue. Neck: No pain with movement. Lungs: Clear to auscultation. Cardiovascular: Heart rate is regular. Abdomen: Soft and nontender. Neurologic: The patient is awake today. He talks in a coherent fashion. He can move his extremities. LAB AND X-RAY: Chest x-ray shows marked improvement in the patient's infiltrates. The patient had a staphylococcus bacteremia, but the blood cultures became negative on June 30, and therefore the patient will need 14 days of treatment from that day. The patient has oral candidiasis, but it is under very good control due to the Mycostatin which he receives. CK is 22, IgA is 43. IgG is 1858. Stool for Clostridium difficile toxin and antigen is negative. Creatinine is 3.3. GFR [place] 18. [place] [address], hemoglobin 10.5 and platelet count 498,000. ASSESSMENT AND PLAN: I have ordered a PICC to be placed in the patient. Along with that a Pro Time was ordered. I have put in a consult for social service to set up home IV antibiotics with the combination of daptomycin and cefepime. Also, I have consulted the social insurance administrator to see about also setting up treatment with p.o. Zyvox for 10 more days as well. The patient most likely will need to continue nystatin when he goes home until all the antibiotics are discontinued. COMORBIDITIES: Obesity, history of cigarette smoking, an IgA deficiency and an IgA deficiency. cc: Jeromy Alfaro MD
--- NOTE | 2019-07-05 14:52 | PROVIDER PROGRESS NOTE ---
Progress Note Subjective: voices feeling fatigued yesterday. No other uremic complaints. Objective: temp 98.1, pulse 99, respirations 18, blood pressure 185/77, 02 sat 98% on 3 L nasal cannula General: Elderly white male lying in bed in no acute distress HEENT: normocephalic, atraumatic, pupils equal and reactive, mucous membranes moist, trachea midline. Skin: warm and dry Neck: supple, no JVD Cardiovascular: s1s2, regular rate and rhythm. No murmur or gallop. Respiratory: diminished air entry to left lung Abdomen: soft, nontender, nondistended, bowel sounds present : non inspected Extremities: 1 + pitting edema to BLE Neurological: alert and oriented to person, place, and time. Labs: WBC 16.53, hemoglobin 10.5, hematocrit 32, platelet count 498, sodium 142, potassium 3.4, chloride 101, carbon dioxide 23, BUN 70, creatinine 3.5. Intake 290, output 1400. Impression: Acute kidney injury. Ischemic acute tubular necrosis secondary to sepsis. Creatinine improving. Adequate urine output. No indications for urgent renal replacement therapy. We will follow up with him in the outpatient setting. Blood pressure. Above target. Primary increased nifedipine Fluid volume. Euvolemic on exam. Anemia. Low. Stable. Does not meet criteria for transfusion. Electrolytes and acid base balance. Improved acidosis. Nutrition. Adequate. Ambulation. Ordered. Medication review. Increased nifedipine.
--- NOTE | 2019-07-05 17:07 | PROGRESS NOTE ---
DATE: 07/05/2019 SUBJECTIVE: This morning Mr. Quinn refers to be doing well. He was just sitting up at the edge of his bed. No new complaints. OBJECTIVE: Vital Signs: Blood pressure is 184/67, pulse of 74, respirations 18, temperature 97.5 degrees. General: Mr. Quinn is a 68-year-old gentleman. He is sitting up at the edge of the bed, in no distress. Mucosa is pink and moist, anicteric and acyanotic. Neck: Supple. No JVD. Chest: Good air entry bilaterally. Few crackles in the left posterior lung klein. Cardiovascular: Regular rate and rhythm. No murmurs, no rubs, no gallops. Gastrointestinal: Abdomen is soft, nontender. Bowel sounds present. Extremities: No pedal edema. Distal pulses are present. Central Nervous System: The patient is awake, alert, and oriented. Input and Output: The patient's urine output was 1400. He is currently negative balance of 5355. LABORATORY DATA: WBC is 16.53, hemoglobin is 10.5, platelet count 498,000. Chemistry is also reviewed. Creatinine is down to 3.5. The patient's creatine kinase is 22. IMAGING STUDIES: A chest x-ray shows interval improvement. ASSESSMENT: 1. Acute hypoxemic respiratory failure. The patient continues to be on supplemental oxygen. 2. Left lower lobe dense pneumonia with extremely elevated procalcitonin level. The patient is currently on cefepime and Zyvox. Infectious Disease is on board. The patient's white cell count got slightly elevated this morning. However, clinically he looks a lot better. 3. Staphylococcus hominis bacteremia. Repeat blood cultures have been negative. The patient is currently on daptomycin. A CK level this morning is actually low. 4. Nonoliguric acute kidney injury secondary to acute tubular necrosis. Creatinine is trending down. Patient continues to be making adequate urine. Nephrology is on board. 5. Sepsis on presentation associated with hypotension and lactic acidosis, resolved. 6. Recently treated influenza A with Tamiflu, improved. Medication has been discontinued, treatment completed. 7. Hypertension. Unfortunately, on admission Mr. Quinn was extremely hypotensive, so his blood pressure medications were withheld. These have been started back, and we are going to continue to titrate for adequate blood pressure control. Disposition. Mr. Quinn is on 2 different intravenous antibiotics and oral antibiotics. I discussed with Dr. Alfaro, and he plans to treat with the antibiotics for a total of about 10 days. He is going to need a peripherally inserted central catheter line and home antibiotics arrangement before he can be discharged. cabinet worker is working on this. As soon as all arrangements are made, then he can be discharged. cc: Isaiah Carrasquillo MD [facility]
[2019-07-06] MEDS: MAXIPIME 1 GM in NS 50 ML IV SCH ×2 (02:10→14:32)
[2019-07-06] MEDS: DUONEB (A & A) INH SCH ×4 (03:18→22:25)
[2019-07-06 08:05] LABS: ALBUMIN 3.2 g/dL (3.5-5.0); CALCIUM 9.2 mg/dL (8.8-10.2); CREATININE 2.8 mg/dL (0.7-1.2); PHOSPHORUS 3.7 mg/dL (2.7-4.5); POTASSIUM 3.6 mmol/L (3.5-5.1)
[2019-07-06] MEDS: ZOFRAN IV PRN ×2 (09:14→23:52)
[2019-07-06] MEDS: MYCOSTATIN SUSP PO SCH ×5 (09:18→21:38)
[2019-07-06] MEDS: COREG PO SCH ×2 (09:18→21:39)
[2019-07-06] MEDS: ZYVOX PO SCH ×2 (09:18→21:39)
[2019-07-06] MEDS: ADALAT CC PO SCH (09:18)
[2019-07-06] MEDS: ASPIRIN EC PO SCH (09:18)
[2019-07-06] MEDS: CUBICIN 500 MG in NS 100 ML IV SCH (12:22)
--- NOTE | 2019-07-06 12:30 | PROGRESS NOTE ---
DATE: 07/06/2019 SUBJECTIVE: Mr. Quinn is discouraged. He remains afebrile. Still pretty weak. He just has no appetite, not eating much at all. OBJECTIVE: Vital Signs: Temperature is 97.5 degrees this morning, pulse 90, respirations 18, blood pressure 180/68. HEENT: Pupils are equal and round. Lungs: Clear in all lung klein. Cardiovascular: Regular rhythm and rate without murmur or S3. Abdomen: Soft. Skin: Warm and dry. DIAGNOSTIC DATA: His last chest x-ray was yesterday and interval improvement. There is less consolidation in the left lung base. Right lung base remains clear. ASSESSMENT AND PLAN: 1. Acute hypoxemic respiratory failure. Patient continues on supplemental O2. We need to see if he needs oxygen at home before he goes home. I think he needs to stay and see if he needs oxygen. This is New Year's Anel. 2. Left lower lobe dense pneumonia which is improving. The patient currently on cefepime and Zyvox. Continue this. 3. Staphylococcus hominis bacteremia. We will repeat the blood cultures. Currently on daptomycin. His CK level was actually low. 4. Nonoliguric acute kidney injury secondary to acute tubular necrosis. Creatinine is trending down. He is improving. 5. Sepsis on presentation with hypotension. Lactic acidosis is resolving. 6. Recently treated with influenza A on Tamiflu, and treatment is completed. 7. Hypertension. He is back on his medication. SUMMARY: He needs treatment with antibiotics for a total of 10 days. He is going to need peripherally inserted central catheter and home antibiotics arranged, and also we need to arrange for oxygen if this is needed. Continue his physical therapy. I am going to have them give him Ensure to supplement his nutrition. REVIEW OF HIS ORDERS: He is on Zyvox 600 mg p.o. every 12 hours. He is on aspirin EC 162 mg daily, Coreg 25 mg b.i.d., daptomycin C 500 mg every 2 days, cefepime 1 gram IV every 12 hours, nifedipine ER 90 mg p.o. daily, nystatin suspension 5 mL 4 times a day, potassium chloride ER 40 mEq he got 1 time. cc: Sid Piña MD
--- NOTE | 2019-07-06 15:08 | INFECTIOUS DISEASE PROGRESS NO ---
DATE: 07/06/2019 PRESENT ILLNESS: The patient has a Staph hominis bacteremia and an associated left lower lobe pneumonia. There also could be another organism causing a pneumonia. The patient has had influenza and has had treatment for it. He has a high IgG level and a low IgA level. Unfortunately, there is nothing we can do to make the IgA level go higher. MEDICATIONS: This is day 6 of treatment with daptomycin and Zosyn and day 5 of treatment with cefepime. PHYSICAL EXAMINATION: Vital Signs: Temperature is 97.5 degrees, pulse 75, respirations 18, blood pressure is 179/81. General: This is a much better-appearing elderly male than he was in the past few days. He is alert and talking and he is able to ambulate without difficulty. Head, eyes, ears, nose, and throat: He can hear my spoken words and see near objects. He does not have any white patches in his mouth. Neck: No meningismus. Lungs: Clear to auscultation. Cardiovascular: Heart rate is regular. Abdomen: Soft and nontender. Extremities: The patient has a PICC in the right arm. The site is not erythematous or purulent. Neurologic: The patient is alert. He talks in a coherent fashion. He can ambulate without help. LABORATORY AND X-RAY: Chest x-ray shows improvement in the patient's left lower lobe infiltrate. The patient's creatinine is down to 2.8, and the GFR is up to 23. ASSESSMENT AND PLAN: The patient has bacteremia pneumonia. The plan is to continue the current antibiotics. Tomorrow I will be getting the patient's CBC and a BMP. Also, I will order another chest x-ray. COMORBIDITIES IN THIS PATIENT: Obesity, history of cigarette smoking, and an IgA deficiency. cc: Jeromy Alfaro MD
[2019-07-06] MEDS: TYLENOL PO PRN (15:15)
[2019-07-07] MEDS: MAXIPIME 1 GM in NS 50 ML IV SCH ×2 (02:22→15:36)
[2019-07-07] MEDS: DUONEB (A & A) INH SCH ×4 (03:39→21:14)
--- NOTE | 2019-07-07 07:11 | Diag Imaging Result Doc PS360 ---
EXAM: CHEST-1 VIEW HISTORY: pneumonia TECHNIQUE: Single view COMPARISON: 07/05/2019 FINDINGS: The lungs are well expanded. Right-sided PICC line in good position. The heart is not enlarged. The vessels are not distended. Decreased interstitial markings in the left lung base compared to the prior exam.. No effusion identified. Calcified granuloma in the lower right lung. IMPRESSION: Interval improvement Electronically signed by Dallas Edward 07/07/2019 7:09 AM
[2019-07-07 07:17] LABS: BASO# 0.04 X1000 (0.0-0.2); BASO% 0.3 % (0.0-0.8); EOS# 0.22 X1000 (0.0-0.7); EOS% 1.6 % (0.0-10.0); IMM GRAN# 0.17 X1000 (0.0-0.04); IMM GRAN% 1.2 % (0.0-0.5); LYMPH# 1.66 X1000 (1.2-3.4); LYMPH% 11.9 % (20.5-51.1); MCH 27.6 PG (27-31); MCHC 32.3 g/dL (33-37); MCV 85.6 FL (81-99); MONO# 1.04 X1000 (0.11-0.59); MONO% 7.4 % (1.7-9.3); MPV 8.9 FL (7.4-10.4); NEUT# 10.86 X1000 (1.4-6.5); NEUT% 77.6 % (42.2-75.2); PLT 454 X1000 (130-400); RBC 3.62 XMIL (4.7-6.1); RDW 14.8 % (11.5-14.5); WBC 13.99 X1000 (4.8-10.8)
[2019-07-07 07:31] LABS: CALCIUM 8.8 mg/dL (8.8-10.2); CREATININE 2.2 mg/dL (0.7-1.2); POTASSIUM 3.6 mmol/L (3.5-5.1)
[2019-07-07 07:40] LABS: ALBUMIN 3.5 g/dL (3.5-5.0); CALCIUM 8.8 mg/dL (8.8-10.2); CREATININE 2.2 mg/dL (0.7-1.2); POTASSIUM 3.8 mmol/L (3.5-5.1)
[2019-07-07] MEDS: ADALAT CC PO SCH (08:35)
[2019-07-07] MEDS: ZYVOX PO SCH ×2 (08:35→20:02)
[2019-07-07] MEDS: ASPIRIN EC PO SCH (08:35)
[2019-07-07] MEDS: COREG PO SCH ×2 (08:35→20:02)
[2019-07-07] MEDS: MYCOSTATIN SUSP PO SCH ×4 (08:36→20:21)
[2019-07-07] MEDS: ZOFRAN IV PRN (08:38)
--- NOTE | 2019-07-07 10:51 | DISCHARGE SUMMARY ---
ADMISSION DATE: 06/26/2019 DISCHARGE DATE: 07/07/2019 HISTORY OF PRESENT ILLNESS: This is a is a patient of Dr. Lexa Chin. He presented on 06/26/2019 with cough, fever, shortness of breath, not feeling well for several days, a 69-year- old with history of hypertension, hyperlipidemia, who presented to the emergency room department after several days of history of not feeling well. States he was having fever and cough. Recently was diagnosed with influenza and just started on treatment with Tamiflu. The patient evaluated in the emergency department. He had imaging done, which did show pneumonia, and due to presenting symptoms, it was thought that he would need admission for further treatment. PAST MEDICAL HISTORY: Hypertension, hyperlipidemia. PAST SURGICAL HISTORY: Appendectomy, cholecystectomy, left carotid stent. HOSPITAL COURSE: So, he was positive for influenza A from nasopharyngeal swabs and lobar pneumonia. Started on antibiotics and he showed slow progression and improvement. Had a CT scan done on 06/29/2019, multilobar pneumonia on the left side, that was a CT scan without contrast. He had an echocardiogram with Doppler done on 06/29/2019. The tricuspid valve was normal. Aortic valve was trileaflet and normal. His left ventricular cavity size was normal. Ejection fraction 60% to 65%. Followup chest x-ray on 07/01/2019, worsening opacification of the left lung base. Renal ultrasound was done on 07/01/2019. Normal renal ultrasound with no sign of obstruction. Dr. Jay was consulted because of acute kidney injury and likely was acute tubular necrosis secondary to sepsis, and his urine output slowly improved and then plateaued and renal function came back to baseline. We found Staphylococcus hominis bacteremia, associated left lower lobe pneumonia, and there also could be another organism causing the pneumonia. The patient did have influenza. He had a high IgG level and a low IgA level. He felt better and wanted to go home on 07/07/2019. He has a right-sided PICC line in good position, and I think the plan was to continue, probably change cefepime to possibly ertapenem. We will discuss with Dr. Alfaro. He is also on Zyvox 600 mg p.o. every 12 hours. His most recent chest x-ray shows improvement. Right- sided PICC line in place. So, we will see if we can get him ready to go home today. Looking at his cultures, stool cultures, there was no Salmonella, Shigella, Campylobacter, or Escherichia coli isolated. His Clostridium difficile toxin and antigen were negative, and he had positive blood cultures from 06/26/2019 of Staphylococcus hominis. cc: Sid Piña MD
--- NOTE | 2019-07-07 12:57 | NEPHROLOGY PROGRESS NOTE ---
DATE: 07/07/2019 SUBJECTIVE: He is doing well today. Ambulatory. Hoping to go home today. OBJECTIVE: Vital Signs: Blood pressure 179/75, heart rate 84, respirations 14, afebrile. General: No acute distress. Skin: Warm and dry. Neck: Neck veins are not distended. Heart: Regular. Lungs: Equal. Abdomen: Benign. Extremities: No edema. IMPRESSION: Acute kidney injury, resolving. Okay for discharge from my perspective. We will see him in the office in 2 weeks. cc: Ran Jay MD
--- NOTE | 2019-07-07 13:53 | PROGRESS NOTE ---
DATE: 07/07/2019 ADDENDUM REPORT We are trying to get things ready. I will not be able to get his home antibiotics ready before tomorrow. Today is new year's Day. We do have a PICC line in and I will ask Dr. Alfaro to help try to get that ready, but I do not think he will be able to go home today, so we will continue present orders and hopefully can let him go home in the morning. cc: Sid Piña MD
--- NOTE | 2019-07-07 15:01 | INFECTIOUS DISEASE PROGRESS NO ---
DATE: 07/07/2019 PRESENT ILLNESS: The patient has a Staph hominis bacteremia and an associated left lower lobe pneumonia. There could be another organism also causing the pneumonia. The patient has oral candidiasis. MEDICATIONS: This is day 6 of treatment with cefepime and will be day 7 tomorrow. This is day 7 of treatment with daptomycin and Zyvox, and tomorrow it will be day 8 of treatment. PHYSICAL EXAMINATION: Vital Signs: Temperature is 98.1, pulse 84, respirations 14, blood pressure 179/75. General: This is a much better appearing elderly male than what he was a few days ago. Head, eyes, ears, nose and throat: He can hear my spoken words and see near objects. He does not have any white patches on his mouth. Neck: No pain with movement. Lungs: Clear to auscultation. Cardiovascular: Regular heart rate. Abdomen: Soft and nontender. Extremities: Patient has a PICC in the right arm. The site is not erythematous or purulent. Neurologic: The patient is alert. He talks in a coherent fashion. He ambulates without difficulty. LAB AND X-RAY: Chest x-ray shows decrease in the left lower lobe markings. CBC shows a white count of 13,990, hemoglobin 10, platelet count 454,000. Creatinine is 2.2. GFR is 30. CK is 22. ASSESSMENT AND PLAN: Patient has bacteremia and pneumonia and oral candidiasis. As mentioned above, by tomorrow the patient will need 6 more days of treatment with intravenous daptomycin and intravenous cefepime, and he will need 6 more days of treatment with Zyvox p.o. and Mycostatin swish and swallow. COMORBIDITIES: The patient is obese. He has a history of cigarette smoking. He has an IgA deficiency, and unfortunately there is no way to replace the IgA deficiency. cc: Jeromy Alfaro MD
[2019-07-08] MEDS: MAXIPIME 1 GM in NS 50 ML IV SCH (02:17)
[2019-07-08] MEDS: DUONEB (A & A) INH SCH ×3 (03:14→15:52)
[2019-07-08] MEDS ORDERED: CATHFLO IV ONE (05:42)
[2019-07-08] MEDS ORDERED: STERILE WATER INJ. INJ ONE (05:42)
[2019-07-08] MEDS: ZOFRAN IV PRN (08:21)
--- NOTE | 2019-07-08 08:58 | PROGRESS NOTE ---
DATE: 07/08/2019 SUBJECTIVE: Mr. Quinn had a pretty good night. He has a little bit of nausea after his antibiotics in the morning. He was sitting up in the chair, breathing comfortably. OBJECTIVE: Temperature 97.9 degrees, pulse 92, respirations 20, blood pressure 187/76. Pupils are equal and round. Lungs are clear in all lung klein anterior, posterior, and lateral. Cardiovascular Examination: Regular rhythm and rate without murmur or S3. Abdomen is soft. Skin is warm and dry. ASSESSMENT AND PLAN: 1. Staphylococcus hominis bacteremia associated with left lower lobe pneumonia. Could also be another organism causing pneumonia. Patient has oral candidiasis. This is going to be day 7 of cefepime. This is day 8 of daptomycin and Zyvox. Trying to arrange for him to go home and decide on what antibiotics we need to use. His peripherally inserted central catheter line, we use catheter flow to try and open it up. We are waiting on his insurance to see what antibiotics he will be able to take but the plan is to try and get him home today. 2. He came in with acute respiratory failure. That has improved. He is off of oxygen, breathing comfortably. 3. Staphylococcus hominis bacteremia. Repeated blood cultures and there was no growth from the . 4. Presented with sepsis and hypotension, lactic acidosis, which resolved. 5. Treatment of influenza A. Tamiflu treatment completed. 6. Hypertension. Blood pressures look good. Still running a little bit on the high side. He is on Coreg 25 mg twice a day and he gets nifedipine ER at 90 mg daily. At home, he was on telmisartan/hydrochlorothiazide 80/25, and so I think we can resume that. His renal function is improved. Creatinine is down to 2.2. I may put him on some just to see if we can get his blood pressure down a little more. cc: Sid Piña MD [facility]
[2019-07-08] MEDS ORDERED: NORVASC PO SCH (09:00)
[2019-07-08] MEDS: ADALAT CC PO SCH (09:11)
[2019-07-08] MEDS: ASPIRIN EC PO SCH (09:12)
[2019-07-08] MEDS: ZYVOX PO SCH (09:12)
[2019-07-08] MEDS: COREG PO SCH (09:12)
[2019-07-08] MEDS: MYCOSTATIN SUSP PO SCH ×2 (09:13→13:35)
[2019-07-08 11:08] LABS: BASO# 0.05 X1000 (0.0-0.2); BASO% 0.4 % (0.0-0.8); EOS# 0.12 X1000 (0.0-0.7); HEMATOCRIT 29.2 % (42.0-52.0); HEMOGLOBIN 9.4 g/dL (14.0-18.0); IMM GRAN# 0.07 X1000 (0.0-0.04); IMM GRAN% 0.6 % (0.0-0.5); LYMPH# 1.51 X1000 (1.2-3.4); MCH 28.1 PG (27-31); MCHC 32.2 g/dL (33-37); MCV 87.2 FL (81-99); MONO# 1.15 X1000 (0.11-0.59); MONO% 9.1 % (1.7-9.3); NEUT# 9.72 X1000 (1.4-6.5); NEUT% 76.9 % (42.2-75.2); PLT 371 X1000 (130-400); RBC 3.35 XMIL (4.7-6.1); RDW 14.6 % (11.5-14.5); WBC 12.62 X1000 (4.8-10.8)
[2019-07-08] MEDS ORDERED: MICARDIS PO SCH (11:45)
[2019-07-08 11:53] LABS: ALBUMIN 3.2 g/dL (3.5-5.0); CALCIUM 8.8 mg/dL (8.8-10.2); CREATININE 1.8 mg/dL (0.7-1.2); PHOSPHORUS 1.9 mg/dL (2.7-4.5); POTASSIUM 3.9 mmol/L (3.5-5.1)
[2019-07-08] MEDS: CUBICIN 500 MG in NS 100 ML IV SCH (13:35)
[2019-07-08 15:48] VITALS: BP 155/58
--- NOTE | 2019-07-08 15:55 | PROVIDER PROGRESS NOTE ---
Progress Note Subjective: He voices feeling good and ready to go home. Denies any shortness of breath, chest pain, or n/v. No complaints at all. Objective: temp 99.3, pulse 103, respirations 22, blood pressure 183/73, 02 sat 96% on room air. General: elderly white male lying in bed and no acute distress. HEENT: normocephalic, atraumatic, peoples equal and reactive, mucous membranes moist, trachea midline. Skin: warm and dry Neck: supple, 6cm JVD Cardiovascular: S1S2, tachycardic rate and rhythm. No murmurs or gallops. Respiratory: diminished base to left lower lung Abdomen: soft, nontender, nondistended. Bowel sounds present. : not inspected Extremities: trace Edema to bilateral lower extremities. Neurological: alert and oriented to person, place, and time. Labs: pending. Intake 240, output 700 Impression. Acute kidney injury. Ischemic acute tubular necrosis secondary to sepsis. Creatinine improving. Urine output is adequate. Resolving. No indications for urgent renal replacement therapy, he will likely be discharging today and we will follow up with him in the office in two weeks. We will sign off. rg Blood pressure. Above target. Will start telmisartan 40mg. Fluid volume. Euvolemic. Anemia. Stable. Electrolytes and acid base balance. In target. Nutrition. Adequate. Ambulation. Ambulating in room. Medication review. Stop amlodipine.
--- NOTE | 2019-07-08 17:43 | DISCHARGE SUMMARY ---
ADMISSION DATE: 06/26/2019 DISCHARGE DATE: ADMISSION DIAGNOSES: 1. Pneumonia. 2. Influenza A. 3. Hypertension. 4. Acute kidney injury. HOSPITAL COURSE: He is a patient of Dr. Lexa Chin. He came in with cough, shortness of breath, not feeling well for several days. A 68-year-old with history of hypertension and hyperlipidemia. He presented to the emergency department with a several-day history of not feeling well. He states he was having cough, fever. Recently diagnosed with influenza and was started on treatment with Tamiflu. The patient was evaluated in the emergency department. He had imaging done which showed pneumonia and so was admitted. The patient had a chest x-ray on 06/26/2019 with left lower lobe pneumonia. His CT of his chest on 06/29: Multilobar pneumonia on the left side. He had an echocardiogram done on 06/29: There is trace tricuspid regurgitation, trace to mild mitral regurgitation, normal left ventricular cavity size with ejection fraction 60% to 65%. Infectious Disease was consulted and felt he had Staphylococcus hominis bacteremia, left-sided pneumonia. He also had influenza A. He complained of diarrhea, and so they checked stools for Clostridium difficile. He had 2 blood cultures positive for Staphylococcus hominis and this was sensitive to vancomycin. It was resistant to Levaquin, resistant to oxacillin. The patient had a renal ultrasound on 07/01: Normal renal ultrasound. He showed progress. Nephrology was asked to see and felt like he had acute kidney injury, acute tubular necrosis. His renal function slowly improved with fluids, and it was felt like he radiographically had improved as well. He felt like he could go home with antibiotics on 07/08/2019. Chest x-ray from 07/07/2019: Interval improvement; right-sided PICC line in good position; heart was not enlarged. Hoping to get him home on 07/08/2019. He is on aspirin 162 mg a day, Coreg 25 mg b.i.d., he was getting cefepime 1 g IV q.12 hours and linezolid 600 mg p.o. q.12, Adalat 90 mg daily, Micardis [address] Alfaro was going to see what antibiotics he would be eligible for. This is day 8 of treatment with daptomycin and Zyvox tomorrow. Actually this was day 8 of treatment with daptomycin and Zyvox, day 7 of treatment with cefepime. Discharge orders: We are trying to see if his insurance will pay for the Zyvox and we will try and arrange that. We will go ahead and get prescriptions ready and see what happens. cc: Sid Piña MD
== END 2019-07-08 18:28 | disposition home or self-care (01) ==
LOC: ED 16:57 → 3N 22:21 → SUATTDRO 22:21
PROVIDERS: ATTEND Emergency Medicine